=== PATIENT | female | born 1950 | race Caucasian/White ===

== ENCOUNTER 2018-07-04 09:34 | Outpatient (REF) | payer MEDICARE, BC, SELFPAY ==
[2018-07-04 13:07] LABS: Anion Gap 6.9 mmol/L (3-11); BUN 16 mg/dL (7-18); CO2 30.1 mmol/L (21.0-32.0); CREATININE 0.84 mg/dL (0.55-1.02); Calcium 9.3 mg/dL (8.5-10.1); Chloride 105 mmol/L (98-107); Glucose 89 mg/dL (70-100); Potassium 4.5 mmol/L (3.5-5.1); Sodium 142 mmol/L (136-145)
== END 2018-07-04 09:54 ==
LOC: NCHCN 09:34
PROVIDERS: PCP Family Medicine; Visit Provider Family Medicine
DX: I10 Essential (primary) hypertension (principal)
CPT/HCPCS: 80048

== ENCOUNTER 2019-07-16 01:32 | Outpatient (CLI) | payer MEDICARE, BC, SELFPAY ==
--- NOTE | 2019-07-16 | DI.MAMMO_ITS ---
EXAM: MAMMO SCREENING CLINICAL HISTORY: SCREENING Z12.31 TECHNIQUE: Mammograms were interpreted according to the usual protocol including computer analysis w [employer] CAD system, tomosynthesis and C-view imaging. COMPARISON: 2009 to 2017 FINDINGS: The breasts are composed of scattered fibroglandular densities, Breast Density category B. No suspicious masses or suspicious microcalcifications are seen. No skin thickening or abnormal axillary lymph nodes are seen. There has been no significant change from prior exams. IMPRESSION: BIRADS Category 1, negative mammogram. Yearly screening mammography is recommended.
== END 2019-07-16 01:52 ==
PROVIDERS: PCP Family Medicine; Visit Provider Family Medicine
DX: Z12.31 Encounter for screening mammogram for malignant neoplasm of breast (principal)
CPT/HCPCS: 77063; 77067

== ENCOUNTER 2019-08-06 18:39 | Outpatient (REF) | payer MEDICARE, BC, SELFPAY ==
[2019-08-06 19:45] LABS: Anion Gap 6.3 mmol/L (3-11); BUN 10 mg/dL (7-18); CO2 30.7 mmol/L (21.0-32.0); CREATININE 0.82 mg/dL (0.55-1.02); Calcium 8.7 mg/dL (8.5-10.1); Chloride 99 mmol/L (98-107); Glucose 48 mg/dL (74-106); Magnesium 1.8 mg/dL (1.8-2.4); Sodium 136 mmol/L (136-145)
== END 2019-08-06 18:59 ==
LOC: NCHCN 18:39
PROVIDERS: PCP Family Medicine; Visit Provider Family Medicine
DX: I10 Essential (primary) hypertension (principal); K29.50 Unspecified chronic gastritis without bleeding
CPT/HCPCS: 80048; 83735

== ENCOUNTER 2020-04-26 11:35 | Outpatient (CLI) | payer MEDICARE, BC, SELFPAY ==
--- NOTE | 2020-04-26 | DI.RAD_ITS ---
EXAM: XR THORACIC SPINE COMPLETE CLINICAL HISTORY: ACUTE BACK PAIN, H/O FALL, M54.89 TECHNIQUE: COMPARISON: CR XR LUMBAR SPINE COMPLETE from 04/26/2020 FINDINGS: Four views of the thoracic spine were obtained. Six views of the lumbar spine were obtained. There is a mild biconvex thoracolumbar scoliosis. There is multilevel disc space narrowing which is mild throughout the thoracic region. There is disc space narrowing at L4-5 and L5-S1 lumbar region. There is mild loss of height anteriorly of the T12 vertebral body, this appears represent a minimal a nterior compression fracture of uncertain age, it is likely to be old. No additional fracture seen. There are very prominent bridging osteophytes in the thoracolumbar junction region. IMPRESSION: Severe DJD, mild T12 anterior compression fracture of uncertain age. RADIATION DOSE DELIVERED: Total DLP Total DLP
== END 2020-04-26 11:55 ==
PROVIDERS: PCP Family Medicine; Visit Provider Family Medicine
DX: M47.814 Spondylosis without myelopathy or radiculopathy, thoracic region (principal); S22.088A Other fracture of T11-T12 vertebra, initial encounter for closed fracture; M41.85 Other forms of scoliosis, thoracolumbar region
CPT/HCPCS: 72072; 72110

== ENCOUNTER 2020-07-18 15:28 | Outpatient (REF) | payer MEDICARE, BC, SELFPAY ==
[2020-07-18 16:27] LABS: ALT 25 U/L (14-59); AST 19 U/L (15-37); Albumin 3.8 g/dL (3.4-5.0); Alkaline Phosphatase 74 U/L (46-116); Anion Gap 7.3 mmol/L (3-11); BUN 8 mg/dL (7-18); Bilirubin, Total 0.8 mg/dL (0.2-1.0); CO2 30.7 mmol/L (21.0-32.0); CREATININE 0.8 mg/dL (0.55-1.02); Calcium 9.6 mg/dL (8.5-10.1); Chloride 99 mmol/L (98-107); Glucose 104 mg/dL (74-106); Potassium 4.4 mmol/L (3.5-5.1); Sodium 137 mmol/L (136-145); TSH (W/Ref FT4) 3.06 uIU/mL (0.36-3.74); Total Protein 6.6 g/dL (6.4-8.2)
== END 2020-07-18 15:29 | disposition home or self-care (01) ==
LOC: NCHCN 15:28
PROVIDERS: PCP Family Medicine; Visit Provider Family Medicine
DX: I10 Essential (primary) hypertension (principal); E77.8 Other disorders of glycoprotein metabolism; R25.1 Tremor, unspecified
CPT/HCPCS: 80053; 84443

== ENCOUNTER 2021-06-23 19:39 | Outpatient (REF) | payer MEDICARE, BC, SELFPAY ==
[2021-06-23 19:57] LABS: ALT 26 U/L (14-59); AST 20 U/L (15-37); Albumin 3.8 g/dL (3.4-5.0); Alkaline Phosphatase 74 U/L (46-116); Anion Gap 4.3 mmol/L (3-11); BUN 11 mg/dL (7-18); Bilirubin, Total 0.8 mg/dL (0.2-1.0); CO2 31.7 mmol/L (21.0-32.0); CREATININE 0.8 mg/dL (0.55-1.02); Calcium 9.6 mg/dL (8.5-10.1); Chloride 102 mmol/L (98-107); Glucose 92 mg/dL (74-106); Sodium 138 mmol/L (136-145); Total Protein 6.6 g/dL (6.4-8.2)
[2021-06-23 20:30] LABS: Calculated LDL 166 mg/dL (<100); Cholesterol 251 mg/dL (<200); HDL Cholesterol 76 mg/dL (40-60); Triglyceride 47 mg/dL (<150)
[2021-06-26 10:35] LABS: Hepatitis C Ab w Rflx HCV PCR Negative (Negative)
== END 2021-06-23 19:40 | disposition home or self-care (01) ==
LOC: LBN 19:39
PROVIDERS: PCP Family Medicine; Visit Provider Family Medicine
DX: E77.8 Other disorders of glycoprotein metabolism (principal); Z11.59 Encounter for screening for other viral diseases
CPT/HCPCS: 80053; 80061; 86803

== ENCOUNTER 2021-07-26 01:01 | Outpatient (CLI) | payer MEDICARE, BC, SELFPAY ==
--- NOTE | 2021-07-26 09:30 | DI.MAMMO_ITS ---
Exam(s) MAMMO SCREENING EXAM: MAMMO SCREENING CLINICAL HISTORY: SCREENING, Z12.39 TECHNIQUE: Mammograms were interpreted according to the usual protocol including computer analysis w [employer] CAD system, tomosynthesis and C-view imaging. COMPARISON: FINDINGS: The breasts are of moderate density with fairly symmetrical distribution of fibroglandular tissue. N o dominant mass or clumped microcalcification is identified in either breast. The current examinatio n is compared with previous examinations including June 2019 and there has been no gross interval change in appearance in comparison with the prior studies. IMPRESSION: No specific evidence of malignancy at this time. Routine screening examinations are suggested at yea rly intervals due to the family history of breast carcinoma. BI-RADS Category 1 - Negative Breast Density - Category B - Scattered areas of fibroglandular density
== END 2021-07-26 01:21 ==
PROVIDERS: PCP Family Medicine; Visit Provider Family Medicine
DX: Z12.31 Encounter for screening mammogram for malignant neoplasm of breast (principal)
CPT/HCPCS: 77063; 77067

== ENCOUNTER → 2022-03-28 11:15 | Outpatient (CLI) | payer MEDICARE, BC, SELFPAY ==
--- NOTE | 2022-03-28 | DI.US_ITS ---
Exam(s) US LOWER EXTREMITY VENOUS LT EXAM: US LOWER EXTREMITY VENOUS LT CLINICAL HISTORY: LOCALIZED SWELLING OF LT LOWER LEG, R22.42; TENDER CORD LT CALF. TECHNIQUE: Lower extremity venous ultrasound performed using grayscale, color-flow, and spectral Do ppler analysis. COMPARISON: No exams were available for comparison FINDINGS: The common femoral, femoral and popliteal veins demonstrate normal compressibility, augmentation, and color Doppler. The posterior tibial veins are patent. No saphenous vein thrombosis or other superfi cial venous thrombosis is seen. No hematoma or Prado's cyst is seen. IMPRESSION: Negative lower extremity ultrasound. No evidence of DVT. DATA REPOSITORY:
== END ==
PROVIDERS: PCP Family Medicine; Visit Provider Family Medicine
DX: R22.42 Localized swelling, mass and lump, left lower limb (principal)
CPT/HCPCS: 93971

== ENCOUNTER 2022-06-27 15:49 | Outpatient (REF) | payer MEDICARE, BC, SELFPAY ==
[2022-06-27 16:13] LABS: Anion Gap 6.1 mmol/L (3-11); BUN 10 mg/dL (7-18); CO2 30.9 mmol/L (21.0-32.0); CREATININE 0.7 mg/dL (0.55-1.02); Calcium 9.6 mg/dL (8.5-10.1); Calculated LDL 147 mg/dL (<100); Chloride 102 mmol/L (98-107); Cholesterol 237 mg/dL (<200); Estimated GFR 91.26 (mL/min/1.73m2); Glucose 97 mg/dL (74-106); HDL Cholesterol 81 mg/dL (40-60); Potassium 4.3 mmol/L (3.5-5.1); Sodium 139 mmol/L (136-145); Triglyceride 45 mg/dL (<150)
== END 2022-06-27 15:50 | disposition home or self-care (01) ==
LOC: NCHCN 15:49
PROVIDERS: PCP Family Medicine; Visit Provider Family Medicine
DX: E78.5 Hyperlipidemia, unspecified (principal); I10 Essential (primary) hypertension
CPT/HCPCS: 80048; 80061

== ENCOUNTER 2022-07-27 01:01 | Outpatient (CLI) | payer MEDICARE, BC, SELFPAY ==
--- NOTE | 2022-07-27 11:00 | DI.DEXA_ITS ---
Exam(s) XR DEXA BONE DENSITY W/WO KAILEY EXAM: XR DEXA BONE DENSITY W/WO KAILEY CLINICAL HISTORY: OTHER SPECIFIED DISORDERS OF BONE DENSITY AND STRUCTURE, M85.88 TECHNIQUE: Routine DEXA evaluation of the lumbar spine, hip, or forearm. COMPARISON: Prior DEXA scan of August 2008 FINDINGS: Performed on a [employer] unit. Lateral image: No compression fracture evident. Lumbar Spine total T-score: -1.3. Prior 2008 reading was -1.2. Hip total T-score:-0.8. Prior 2008 reading was 0.3. Independent reading at the level of the femoral neck yields T-score of -1.3 Forearm total T-score: -2.6 IMPRESSION: Bone mineral density measures in the osteopenia range 4 the spine and hip and measures in osteoporosi s range for the forearm.. Fracture risk is moderate-high. Note: Any spine fracture indicates 5x risk for subsequent spine fracture and 2x risk for subsequent h ip fracture. World Health Organization criteria for BMD interpretation classify patients: Normal...... T- Score at or above -1.0 Osteopenic... T- Score between -1.0 and -2.5 Osteoporosis... T-Score at or below -2.5
--- NOTE | 2022-07-27 11:11 | DI.MAMMO_ITS ---
Exam(s) MAMMO SCREENING EXAM: MAMMO SCREENING CLINICAL HISTORY: SCREENING, Z12.39. TECHNIQUE: Bilateral full field digital CC and MLO mammographic images were obtained with 3D tomosyn thesis and utilizing computer aided detection (CAD). COMPARISON: Prior mammograms were reviewed. FINDINGS: There has been no significant change in the appearance and distribution of the fibroglandular tissue. There are no new spiculated masses nor malignant appearing microcalcification groups. Asymmetric density lateral of center in the right breast is unchanged from 2013 and therefore benign. There is no significant architectural distortion nor skin thickening-retraction. IMPRESSION: No radiographic evidence of malignancy. Stable benign findings. BI-RADS Category 2 - Benign Findings Breast Density - Category B - Scattered areas of fibroglandular density Breast density Category C or D implies that the patient has dense breast tissue. Dense breast tissue can make it harder to find cancer on a mammogram. Dense breast tissue is also associated with an incr eased risk of breast cancer. This information about the result of the mammogram report was provided to the patient to raise their awareness. Use this report when you speak with the patient about their risks for breast cancer, which includes their family history. At that time, you may recommend additional screening tests (Ultrasoun d or MRI) as these tests may add significant information. A negative radiographic report should not delay biopsy if a dominant or clinically suspicious mass is present. Up to ten percent of cancers are not identified on mammography. A negative report may reinforce clinical impression. Adenosis and dense breasts may obscure an underlying neoplasm. False positive reports average 6 to 10%. Patient will receive a letter notifying them of these results.
== END 2022-07-27 01:21 ==
PROVIDERS: PCP Family Medicine; Visit Provider Family Medicine
DX: Z12.31 Encounter for screening mammogram for malignant neoplasm of breast (principal); M85.88 Other specified disorders of bone density and structure, other site; M81.0 Age-related osteoporosis without current pathological fracture
CPT/HCPCS: 77063; 77067; 77080

== ENCOUNTER 2023-02-01 09:15 | Outpatient (CLI) | payer MEDICARE, BC, SELFPAY ==
--- NOTE | 2023-02-01 08:00 | DI.RAD_ITS ---
Exam(s) XR KNEE RT 3V AP,LAT,DANIELLA EXAM: XR KNEE RT 3V AP,LAT,DANIELLA CLINICAL HISTORY: right knee pain. TECHNIQUE: 2D digital imaging was performed of the right knee. Three views obtained. AP, lateral an d PA tunnel views were obtained. COMPARISON: No priors for comparison. FINDINGS: BONES: No acute fracture is present. No bony destructive lesion is seen. JOINTS: There is moderate narrowing of the medial femoral tibial joint. Small osteophytes are seen i n all 3 joint compartments. There does appear to be a small joint effusion. SOFT TISSUE: Normal. IMPRESSION: Mild degenerative changes of the right knee. DATA REPOSITORY: RADIATION DOSE DELIVERED:
== END 2023-02-01 09:16 | disposition home or self-care (01) ==
LOC: DIORS 09:16
PROVIDERS: PCP Family Medicine; Referring Provider Family Medicine; Visit Provider Physician Assistant
DX: M17.11 Unilateral primary osteoarthritis, right knee; M23.91 Unspecified internal derangement of right knee; Z98.890 Other specified postprocedural states
CPT/HCPCS: 73562; 99203

== ENCOUNTER 2023-03-08 14:44 | Emergency (ER) | payer MEDICARE, BC, SELFPAY ==
[2023-03-08] VITALS (13 sets, daily range): BP systolic 81–201; BP diastolic 42–89; PULSE 50–54; RESP 16–18; TEMP 36.7; O2SAT 96–100
--- NOTE | 2023-03-08 16:08 | W.ED.GENAD ---
Discharge Plan Disposition Patient Disposition: Home Condition: Improving Discharge Details Clinical Impression: Fracture, humerus closed Primary Care Provider: Alfredo Bardales ED Provider: Peter Frias Meds and New Rx's Prescriptions: New naproxen [Naprosyn] 500 mg tablet 500 mg PO BID Qty: 30 0RF tramadol 50 mg tablet 50 mg PO BID PRN (Reason: pain) Qty: 14 0RF Continued atorvastatin 20 mg tablet 20 mg PO DAILY losartan-hydrochlorothiazide 50-12.5 mg tablet 1 tab PO DAILY cyclosporine [Restasis] 0.05 % dropperette 1 drp ophthalmic (eye) Q12H Fish Oil 1 EACH capsule 2 ea PO DAILY multivitamin 1 EACH tablet 1 tab PO DAILY sumatriptan succinate 100 MG tablet 100 mg PO DAILY PRN calcium carbonate [Calcium 600] 600 MG tablet 600 mg PO TID colestipol [Colestid] 1 GM tablet 1 g PO QID PRN Psyllium [Metamucil] 1 EACH Pkt 1 pkt PO DAILY PRN fluocinolone 0.01 % solution TOPICAL Patient Comments: APPLY A SMALL AMOUNT TO THE SKIN TWO TIMES A DAY TO SCALP RASH acetaminophen [Tylenol] 325 MG tablet 650 mg PO Q6H PRN PRNQty: 0 0RF Discharge Instructions Instructions: Arm Fracture in Adults (ED) Discharge Data Discharge Physician: Peter Frias Medical Decision Making MDM: Summary: Patient presents to the emergency department after she fell sitting trauma to her right shoulder and right knee. She had labs done and imaging. CT of the head C-spine chest abdomen pelvis is all negative. X-ray of the right shoulder which she sustained trauma shows a fracture of the humeral head. X-ray of the knee which she also seen trauma shows no fracture. Data Review Analysis All the data on this patient was reviewed by me including laboratory and imaging studies as well as bedside studies performed by me Independent review of Studies Imaging Images was reviewed by me as read by me the only finding was the description above Lab: Labs unremarkable Risk Stratification: Patient who sustained trauma and fell send trauma to right shoulder who only has a fracture of the humeral head and was be placed on a sling and shoulder immobilizer and will be discharged home with analgesics with follow-up with orthopedic surgery Differential Diagnosis: 1. Shoulder fracture 2. Shoulder dislocation 3. Blunt abdominal trauma 4. Head injury with intracranial bleed 5. Consultants: Shared disposition: Patient feels much improved after analgesics in the emergency department will be go home on the immobilizer and follow with Ortho surgery Impression: Medical Records Medical records reviewed: Yes I reviewed the patient's medical records. Imaging Data Radiologic Study: Attestation: I personally reviewed and interpreted this imaging study as follows: Imaging: CT Scan Radiologist's impression: Launch?Image Patient Name: Kavitha Batista Unit #: [id number] Loc: ER Ordering Provider: Peter Frias M.D. Status: REG ER Primary Care Provider: Alfredo Bardales Date of Exam: 03/08/23 Sex: F : 1950 Age: 72 Exam(s) a CT:CT head & cervical spine wo Exam(s) CT HEAD CERVICAL SPINE WO EXAM: CT HEAD CERVICAL SPINE WO CLINICAL HISTORY: trauma. TECHNIQUE: Imaging Protocol: Axial computed tomography images with coronal and sagittal reformatted images were created and reviewed COMPARISON: No exams were available for comparison FINDINGS: CT Head: Ventricles and Extra axial spaces: Normal in size and morphology for the patient's age. Hemorrhage: None. Cerebral parenchyma: Normal. Midline shift: None. Brainstem/Cerebellum: Normal. Calvarium: Normal. Visualized Paranasal sinuses/Mastoids: Clear. Soft Tissues: Unremarkable. CT Cervical Spine: Bones: No acute fracture or subluxation. Degenerative changes are seen throughout the cervical spine. Soft Tissues: Unremarkable. Lung Apices: Clear. IMPRESSION: 1. No acute intracranial process. 2. No acute fracture or subluxation in the cervical spine. RADIATION DOSE DELIVERED: Total DLP DATA REPOSITORY: All CT scans at this facility are submitted to the National Radiology Data Registry (NRDR) Dose Index Registry (DIR) with the [employer] (ACR). RADIATION OPTIMIZATION: All CT scans at this facility use at least one of these dose optimization techniques: automated exposure control; mA and/or kV adjustment per patient size (includes targeted exams where dose is matched to clinical indication); or iterative reconstruction. [id number]: Total DLP = 0.00 mGy-cm Ordered By: Peter Frias M.D. CC: Radiologic Study #2: Imaging: X-Ray Radiologist's impression: dmission Date: 03/08/23 : 1950 Age: 72 Exam(s) XR SHOULDER RT COMPLETE 2+V EXAM: XR SHOULDER RT COMPLETE 2+V CLINICAL HISTORY: trauma. TECHNIQUE: 2D digital imaging was performed of the right shoulder. Four images were obtained. AP, Grashey, and Y views were obtained. COMPARISON: No exams were available for comparison FINDINGS: BONES: There is an acute comminuted fracture seen at the proximal humerus. The fracture involves the surgical neck and the greater tuberosity. The fracture is mildly impacted. The tuberosity fracture is displaced. JOINTS: No dislocation present. The acromioclavicular joint is unremarkable. SOFT TISSUE: Normal. IMPRESSION: Comminuted impacted and displaced fracture of the proximal right humerus. DATA REPOSITORY: RADIATION DOSE DELIVERED: Radiologic Study #3: Attestation: I personally reviewed and interpreted this imaging study as follows: Imaging: X-Ray Radiologist's impression: Kavitha Batista??72??F??1950 ? Allergy/Adv: latex, isosorbide Close Shoulder X-Ray (Signed) Micheal Reynoso - 03/08/23 Knee X-Ray (Signed) Micheal Reynoso - 03/08/23 Thoracic/Lumbar Spine CT 03/08/23 Head/Cervical Spine CT (Signed) Micheal Reynoso - 03/08/23 Chest/Abdomen/Pelvis CT 03/08/23 Launch?Image Patient Name: Kavitha Batista Unit #: [id number] Loc: ER Ordering Provider: Peter Frias M.D. Status: REG ER Primary Care Provider: Alfredo Bardales Date of Exam: 03/08/23 Sex: F : 1950 Age: 72 Exam(s) a CT:CT head & cervical spine wo Exam(s) CT HEAD CERVICAL SPINE WO EXAM: CT HEAD CERVICAL SPINE WO CLINICAL HISTORY: trauma. TECHNIQUE: Imaging Protocol: Axial computed tomography images with coronal and sagittal reformatted images were created and reviewed COMPARISON: No exams were available for comparison FINDINGS: CT Head: Ventricles and Extra axial spaces: Normal in size and morphology for the patient's age. Hemorrhage: None. Cerebral parenchyma: Normal. Midline shift: None. Brainstem/Cerebellum: Normal. Calvarium: Normal. Visualized Paranasal sinuses/Mastoids: Clear. Soft Tissues: Unremarkable. CT Cervical Spine: Bones: No acute fracture or subluxation. Degenerative changes are seen throughout the cervical spine. Soft Tissues: Unremarkable. Lung Apices: Clear. IMPRESSION: 1. No acute intracranial process. 2. No acute fracture or subluxation in the cervical spine. RADIATION DOSE DELIVERED: Total DLP DATA REPOSITORY: All CT scans at this facility are submitted to the National Radiology Data Registry (NRDR) Dose Index Registry (DIR) with the [employer] (ACR). RADIATION OPTIMIZATION: All CT scans at this facility use at least one of these dose optimization techniques: automated exposure control; mA and/or kV adjustment per patient size (includes targeted exams where dose is matched to clinical indication); or iterative reconstruction. [id number]: Total DLP = 0.00 mGy-cm Ordered By: Rafal Frias General Date/Time Provider Initiated Documentation: 03/08/23 15:14. HPI Narrative: Patient presents emergency department complaining of right shoulder pain and right knee pain after she sustained a fall while going down her basement. States that she landed her right shoulder right knee. Also complaining of neck pain. She was by an ambulance on neck immobilizer. Denies any head injury denies any loss of consciousness denies any chest or abdominal pain denies any shortness of breath. Related Data Home Medications Medication Instructions Recorded Confirmed Psyllium [Metamucil] 1 pkt PO DAILY PRN 12/03/13 03/08/23 calcium carbonate 600 mg calcium 600 mg PO TID 12/03/13 03/08/23 (1,500 mg) tablet (Calcium) colestipol 1 gram tablet (Colestid) 1 g PO QID PRN 12/03/13 03/08/23 multivitamin 1 tab PO DAILY 12/03/13 03/08/23 sumatriptan succinate 100 mg tablet 100 mg PO DAILY PRN 12/03/13 03/08/23 omega-3 fatty acids-fish oil 340 2 ea PO DAILY 12/31/16 03/08/23 mg-1,000 mg capsule (Fish Oil) acetaminophen 325 mg tablet 650 mg (2 x 325 mg) PO Q6H PRN PRN 02/14/17 03/08/23 (Tylenol) #0 tabs atorvastatin 20 mg tablet 20 mg PO DAILY 02/01/23 03/08/23 cyclosporine 0.05 % eye drops in a 1 drp ophthalmic (eye) Q12H 02/01/23 03/08/23 dropperette (Restasis) losartan 50 mg-hydrochlorothiazide 1 tab PO DAILY 02/01/23 03/08/23 12.5 mg tablet fluocinolone 0.01 % topical topical 03/08/23 solution naproxen 500 mg tablet (Naprosyn) 500 mg PO BID #30 tabs 03/08/23 tramadol 50 mg tablet 50 mg PO BID PRN pain #14 tabs 03/08/23 Previous Rx's Medication Instructions Recorded acetaminophen 325 mg tablet 650 mg (2 x 325 mg) PO Q6H PRN PRN 02/14/17 (Tylenol) #0 tabs naproxen 500 mg tablet (Naprosyn) 500 mg PO BID #30 tabs 03/08/23 tramadol 50 mg tablet 50 mg PO BID PRN pain #14 tabs 03/08/23 Allergies Allergy/AdvReac Type Severity Reaction Status Date / Time latex Allergy Intermediate Skin Rash Unverified 03/08/23 14:48 isosorbide [Isosorbide] AdvReac Intermediate Headache Unverified 03/08/23 14:48 General Stated Complaint: Fall/Non TraumaCriteria JESSICA: 3 Review of Systems Narrative: Review of Systems: Constitutional: No fevers, chills, sweats Eye: No recent visual problems ENT: No ear pain, nasal congestion, sore throat Respiratory: No shortness of breath, cough Cardiovascular: No Chest pain, palpitations, syncope Gastrointestinal: No nausea, vomiting, diarrhea Genitourinary: No hematuria Von/Lymph: Negative for bruising tendency, swollen lymph glands Endocrine: Negative for excessive thirst, excessive hunger Musculoskeletal: No back pain, Integumentary: No rash, pruritus, abrasions Neurologic: Alert & oriented X 4 Psychiatric: No anxiety, depression PFSH All Active Problems (Updated 03/08/23 @ 19:31 by Peter Frias MD) Fracture, humerus closed (Acute) Degenerative joint disease of right knee (Acute) Internal derangement of right knee (Acute) Surgical History Status post arthroscopy of right knee (02/14/17) Partial medial meniscectomy Social History Smoking/Tobacco Use Status: Never Smoking risk assessment performed?: Yes Alcohol Intake: never Drug use: Never Substance use type: does not use Housing: house Do you feel safe at home: Yes Do you feel safe in your relationship?: Yes Exam Narrative Exam Narrative: Exam; vitals signs as reported above normal Constitutional; In no acute distress, afebrile General: cooperative, healthy appearing, comfortable and no acute distress HEENT: Head: normal to inspection, no palpable skull fracture and normocephalic atraumatic Eyes: : appearance normal, both eyes and all related structures EOM intact bilaterally Pupils: PERRL : conjunctiva normal Direct ophthalmoscopy: normal light reflex, normal conjunctiva, normal visual acuity Ears: Normal TM, normal external canal Nose: normal no rhinorrhea Neck no JVD, on neck immobilizer Neck: normal visual inspection, full ROM and no lymphadenopathy Chest: normal inspection of the chest Respiratory : normal respiratory effort and able to speak in complete sentences no wheezing no rales Cardio Rate: regular rate, rhythm: regular rhythm normal heart sounds S1 and S2 no murmurs, gallops, or rubs GI : normal to inspection, normal bowel sounds, soft, non tender, non distended, no organomegaly Back/Spine/ no CVA tenderness Thoracic/Lumbar Spine: no tenderness or deformities Skin no rashes or lesions Neuro: patient alert oriented x 4 and no meningeal signs, Cranial Nerves: CN's II-XI intact bilaterally, Cognition: normal cognition, Speech: speech normal, Gait: normal gait, Depp tendon reflexes normal 2+ muscle strength 5/5 bilaterally Extremities, tenderness to palpation and swelling over the right shoulder at the level of the humeral head. Mild tenderness to palpation of the right knee but full range of motion : normal Rectal: Course Vital Signs Vital signs: Vital Signs Temperature 36.7 C 03/08/23 14:43 Pulse 54 L 03/08/23 14:43 Respiratory Rate 16 03/08/23 14:43 Blood Pressure 201/89 H 03/08/23 14:43 Pulse Oximetry 100 03/08/23 14:43 Temperature 36.7 C 03/08/23 14:43 Temperature Source Temporal Artery Scan 03/08/23 14:43 Pulse 50 L 03/08/23 16:03 Respiratory Rate 18 03/08/23 16:03 Respiratory Effort Normal 03/08/23 14:48 Blood Pressure 183/87 H 03/08/23 16:03 Blood Pressure Position Sitting 03/08/23 14:43 Pulse Oximetry 100 03/08/23 16:03 Oxygen Delivery Method Room Air 03/08/23 16:03 Oxygen Flow Rate 0 03/08/23 16:03 Pain Level 9 03/08/23 16:03
--- NOTE | 2023-03-08 16:15 | DI.CT_ITS ---
Exam(s) CT HEAD CERVICAL SPINE WO EXAM: CT HEAD CERVICAL SPINE WO CLINICAL HISTORY: trauma. TECHNIQUE: Imaging Protocol: Axial computed tomography images with coronal and sagittal reformatted images were created and reviewed COMPARISON: No exams were available for comparison FINDINGS: CT Head: Ventricles and Extra axial spaces: Normal in size and morphology for the patient's age. Hemorrhage: None. Cerebral parenchyma: Normal. Midline shift: None. Brainstem/Cerebellum: Normal. Calvarium: Normal. Visualized Paranasal sinuses/Mastoids: Clear. Soft Tissues: Unremarkable. CT Cervical Spine: Bones: No acute fracture or subluxation. Degenerative changes are seen throughout the cervical spine. Soft Tissues: Unremarkable. Lung Apices: Clear. IMPRESSION: 1. No acute intracranial process. 2. No acute fracture or subluxation in the cervical spine. RADIATION DOSE DELIVERED: Total DLP DATA REPOSITORY: All CT scans at this facility are submitted to the National Radiology Data Registry (NRDR) Dose Index Registry (DIR) with the [employer] (ACR). RADIATION OPTIMIZATION: All CT scans at this facility use at least one of these dose optimization te chniques: automated exposure control; mA and/or kV adjustment per patient size (includes targeted exa ms where dose is matched to clinical indication); or iterative reconstruction.
--- NOTE | 2023-03-08 16:15 | DI.CT_ITS ---
Exam(s) CT CHEST/ABD/PEL W CT THORACIC LUMBAR SPINE REC EXAM: CT CHEST/ABD/PEL W CLINICAL HISTORY: trauma. TECHNIQUE: Imaging Protocol: Axial computed tomography images with coronal and sagittal reformatted images were created and reviewed CONTRAST MATERIAL: Intravenous: Omnipaque 350 Contrast volume:100 ml Oral: no COMPARISON: CR XR LUMBAR SPINE COMPLETE from 04/26/[address] THORACIC LUMBAR SPINE REC from 03/08/2023 FINDINGS: CHEST: Tracheobronchial tree: Patent where visualized. Pulmonary parenchyma: No consolidation or dominant measurable mass. Pleura: No effusion or pneumothorax. Lymph nodes: Within normal limits. Aorta: Thoracic portion non-dilated. Heart: Mildly enlarged. No pericardial effusion. Bones: Comminuted humeral head fracture. No lytic or blastic lesions. Moderate T12 compression frac ture appears old. No acute fracture lines are seen. There is mild retropulsion of the superior endp late. No surrounding hematoma. The T12 vertebral body showed mild loss of height on the 2019 lumbar spine films. Mild scoliosis. Degenerative changes. ABDOMEN and PELVIS: Liver: Normal density. No measurable mass. Gallbladder and biliary tract: No evidence of stones or wall thickening. No biliary dilatation. Pancreas: Normal density, no abnormal calcifications or inflammatory process. Spleen: Normal. Kidneys: Normal size, contour and axis. No radiodense stones or obstructive uropathy. No suspicious m asses seen. Adrenal glands: No masses seen. Aorta: Abdominal portion non-dilated. Mild atherosclerotic changes. Lymph nodes: Within normal limits. Soft tissues: Unremarkable. Bladder: Unremarkable. Bowel: No obstruction or bowel wall thickening. Diverticulosis. Appendix normal. Peritoneal cavity: No ascites. No focal collection or mesenteric inflammatory response. Bones: Unremarkable for age. Reproductive organs: Within normal limits. IMPRESSION: Comminuted humeral head fracture. Moderate T12 compression fracture appears old. No acute abnormality in the chest abdomen or pelvis. RADIATION DOSE DELIVERED: Total DLP DATA REPOSITORY: All CT scans at this facility are submitted to the National Radiology Data Registry (NRDR) Dose Index Registry (DIR) with the [employer] (ACR). RADIATION OPTIMIZATION: All CT scans at this facility use at least one of these dose optimization te chniques: automated exposure control; mA and/or kV adjustment per patient size (includes targeted exa ms where dose is matched to clinical indication); or iterative reconstruction.
[2023-03-08] MEDS: MORPHine 4 MG/ML SYR IVP (16:29)
[2023-03-08 16:43] LABS: Abs Immature Grans 0.04 10^3/uL (0.0-0.06); Absolute Basophil Count 0.03 10^3/uL (0.0-0.2); Absolute Eosinophil Count 0.04 10^3/uL (0.0-0.7); Absolute Lymphocyte Count 0.67 10^3/uL (1.2-3.4); Absolute Neutrophil Count 8.63 10^3/uL (1.2-6.7); Basophils % 0.3; Eosinophils % 0.4; HCT 41.4 % (36.0-46.0); HGB 13.7 g/dL (11.2-15.7); Immature Grans % 0.4; Lymphocytes % 6.7; MCH 29.3 pg (27.0-33.0); MCHC 33.1 % (32.0-36.0); MCV 89 fL (80-95); MPV 10.8 fL (8.0-11.0); Neutrophils % 86.2; Platelet Count 269 10^3/uL (130-400); RBC 4.68 10^6/uL (3.93-5.22); RDW 13.9 % (11.7-14.6); RDW-SD 44.9 fL; WBC 10.01 10^3/uL (4.4-10.8)
[2023-03-08 16:57] LABS: ALT 29 U/L (14-59); AST 25 U/L (15-37); Albumin 3.7 g/dL (3.4-5.0); Alkaline Phosphatase 78 U/L (46-116); BUN 11 mg/dL (7-18); Bilirubin, Total 1.3 mg/dL (0.2-1.0); CREATININE 0.8 mg/dL (0.55-1.02); Calcium 9.2 mg/dL (8.5-10.1); Chloride 98 mmol/L (98-107); Estimated GFR 77.27 (mL/min/1.73m2); Glucose 116 mg/dL (74-106); Potassium 3.6 mmol/L (3.5-5.1); Sodium 133 mmol/L (136-145); Total Protein 6.6 g/dL (6.4-8.2)
[2023-03-08] MEDS: Omnipaque 350 MG/ML 100 ML BTL IJ (18:16)
[2023-03-08] MEDS: Normal Saline - Diluent 50 ML VIAL IJ (18:16)
[2023-03-08] MEDS: Normal Saline Flush 10 ML SYR IVP (18:17)
--- NOTE | 2023-03-08 18:38 | DI.RAD_ITS ---
Exam(s) XR SHOULDER RT COMPLETE 2+V EXAM: XR SHOULDER RT COMPLETE 2+V CLINICAL HISTORY: trauma. TECHNIQUE: 2D digital imaging was performed of the right shoulder. Four images were obtained. AP, Grashey, and Y views were obtained. COMPARISON: No exams were available for comparison FINDINGS: BONES: There is an acute comminuted fracture seen at the proximal humerus. The fracture involves the surgical neck and the greater tuberosity. The fracture is mildly impacted. The tuberosity fracture is displaced. JOINTS: No dislocation present. The acromioclavicular joint is unremarkable. SOFT TISSUE: Normal. IMPRESSION: Comminuted impacted and displaced fracture of the proximal right humerus. DATA REPOSITORY: RADIATION DOSE DELIVERED:
--- NOTE | 2023-03-08 18:38 | DI.RAD_ITS ---
Exam(s) XR KNEE RT 3V AP,LAT,DANIELLA EXAM: XR KNEE RT 3V AP,LAT,DANIELLA CLINICAL HISTORY: trauma. TECHNIQUE: 2D digital imaging was performed of the right knee. Three views obtained. AP, lateral an d PA tunnel views were obtained. COMPARISON: CR XR KNEE RT 3V AP,LAT,DANIELLA from 02/01/2023 FINDINGS: BONES: No acute fracture is present. No bony destructive lesion is seen. JOINTS: The knee is normally aligned. No joint effusion is seen. Mild degenerative changes are presen t. SOFT TISSUE: Normal. IMPRESSION: No acute fracture or dislocation. DATA REPOSITORY: RADIATION DOSE DELIVERED:
--- NOTE | 2023-03-08 19:00 | DI.VRAD_ITS ---
PROCEDURE INFORMATION: Exam: CT Thoracic Spine Without Contrast Exam date and time: 03/08/2023 6:05 PM Age: 72 years old Clinical indication: Low back pain; Pain in thoracic spine TECHNIQUE: Imaging protocol: Computed tomography of the thoracic spine without contrast. COMPARISON: CR XR THORACIC SPINE COMPLETE 04/26/2020 2:56 PM FINDINGS: Bones/joints: There is mild dextrocurvature of the thoracic spine and moderate to severe compression fracture deformity with irregular concavity and collapse of the superior endplate of T12 is of indeterminate age with recent fracture not excluded. There are a few mm of retropulsion of the posterior margin of the superior endplate of T12 without severe canal stenosis. There is gross preservation of vertebral body height throughout the remainder of the thoracic spine with no other acute vertebral body fractures detected. Posterior elements appear grossly intact throughout thoracic levels. T1-T2: No significant disc bulge or herniation. No severe spinal canal stenosis. No significant neural foraminal narrowing. T2-T3: No significant disc bulge or herniation. No severe spinal canal stenosis. No significant neural foraminal narrowing. T3-T4: No significant disc bulge or herniation. No severe spinal canal stenosis. No significant neural foraminal narrowing. T4-T5: No significant disc bulge or herniation. No severe spinal canal stenosis. No significant neural foraminal narrowing. T5-T6: No significant disc bulge or herniation. No severe spinal canal stenosis. No significant neural foraminal narrowing. T6-T7: No significant disc bulge or herniation. No severe spinal canal stenosis. No significant neural foraminal narrowing. T7-T8: No significant disc bulge or herniation. No severe spinal canal stenosis. No significant neural foraminal narrowing. T8-T9: No significant disc bulge or herniation. No severe spinal canal stenosis. No significant neural foraminal narrowing. T9-T10: No significant disc bulge or herniation. No severe spinal canal stenosis. No significant neural foraminal narrowing. T10-T11: No significant disc bulge or herniation. No severe spinal canal stenosis. No significant neural foraminal narrowing. T11-T12: No significant disc bulge or herniation. No severe spinal canal stenosis. No significant neural foraminal narrowing. T12-L1: There is a few mm of retropulsion of the posterior margin of the superior endplate of T12 seen indenting the ventral thecal sac without severe canal stenosis or evidence of severe cord compression. IMPRESSION: 1. Moderate to severe compression fracture deformity with irregular concavity and collapse of the superior endplate of T12 is of indeterminate age with recent fracture not excluded; MRI could provide additional diagnostic information. There are a few mm of retropulsion of the posterior margin of the superior endplate of T12 without severe canal stenosis. 2. No other acute fractures are detected involving the vertebral bodies or posterior elements throughout the remainder of the thoracic spine. Of you flexion pieces should PROCEDURE INFORMATION: Exam: CT Lumbar Spine Without Contrast Exam date and time: 03/08/2023 6:05 PM Age: 72 years old Clinical indication: Low back pain; Pain in thoracic spine TECHNIQUE: Imaging protocol: Computed tomography of the lumbar spine without contrast. COMPARISON: CR XR LUMBAR SPINE COMPLETE 04/26/2020 2:58 PM FINDINGS: Bones/joints: There is gross preservation of vertebral body height throughout lumbar levels with no acute fractures or dislocations identified. Changes of facet arthropathy are most advanced at the L4-L5 and L5-S1 levels and no acute fracture seen involving the posterior elements of the lumbar spine. L1-L2: No significant disc bulge or herniation. No severe spinal canal stenosis. No significant neural foraminal narrowing. L2-L3: No significant disc bulge or herniation. No severe spinal canal stenosis. No significant neural foraminal narrowing. L3-L4: No significant disc bulge or herniation. No severe spinal canal stenosis. No significant neural foraminal narrowing. L4-L5: There is mild loss of disc space height and posterior osteocartilaginous ridging produces mild central canal stenosis (AP canal dimension approximately 8 mm) with endplate and facet changes also resulting in right foraminal narrowing. The left neural foramen is adequate at L4-L5. L5-S1: There is loss of disc space height and disc desiccation with vacuum disc phenomenon and broad-based posterior disc bulging combines with advanced facet arthropathy to produce severe suspected central canal stenosis (AP canal dimension 6-7 mm) and probable bilateral effacement of the subarticular recesses. Bilateral foraminal narrowings also suspected at L5-S1. Soft tissues: Unremarkable. IMPRESSION: 1. There is gross preservation of vertebral body height throughout lumbar levels with no acute fractures or dislocations identified. Changes of facet arthropathy are most advanced at the L4-L5 and L5-S1 levels and no acute fracture seen involving the posterior elements of the lumbar spine. 2. Degenerative disc and facet changes produce severe canal stenosis and bilateral effacement of the subarticular recesses with probable bilateral foraminal narrowings at L5-S1 as above. Moderate canal stenosis and right foraminal narrowing also identified at L4-L5. Central canal is adequate at remaining lumbar levels. Dictated and Authenticated by: Curly Powell MD. Ordering:MARCIN Green MD
--- NOTE | 2023-03-08 19:09 | DI.VRAD_ITS ---
PROCEDURE INFORMATION: Exam: CT Chest With Contrast; Diagnostic Exam date and time: 03/08/2023 6:05 PM Age: 72 years old Clinical indication: Injury or trauma; Other: Unknown; Generalized; Blunt trauma (contusions or hematomas) TECHNIQUE: Imaging protocol: Diagnostic computed tomography of the chest with contrast. COMPARISON: CT HEAD CERVICAL SPINE WO 03/08/2023 6:00 PM FINDINGS: Lungs: The lungs are clear throughout with no parenchymal lung contusion, consolidation or collapse detected. Pleural spaces: No pneumothorax or pleural effusion. Heart: Heart size is normal and there is no pericardial effusion detected. Lymph nodes: No lymphadenopathy detected at thoracic levels. Vasculature: Normal thoracic aorta with no evidence of dissection or other traumatic injury. No aortic aneurysm detected. Bones/joints: Moderate to severe compression fracture deformity with irregular concavity and collapse of the superior endplate of T12 is of indeterminate age and recent fracture is not excluded. There are few mm of retropulsion of the posterior margin of the superior endplate of T12 without severe canal stenosis. No other acute fractures are detected at thoracic levels. Soft tissues: Unremarkable. IMPRESSION: 1. Moderate to severe compression fracture deformity with irregular concavity and collapse of the superior endplate of T12 is of indeterminate age and recent fracture is not excluded; MRI could provide additional diagnostic information. No other acute fractures are detected at thoracic levels. 2. No other evidence of an acute cardiopulmonary process is identified. PROCEDURE INFORMATION: Exam: CT Abdomen And Pelvis With Contrast Exam date and time: 03/08/2023 6:05 PM Age: 72 years old Clinical indication: Injury or trauma; Other: Unknown; Generalized; Blunt trauma (contusions or hematomas) TECHNIQUE: Imaging protocol: Computed tomography of the abdomen and pelvis with contrast. COMPARISON: MRI R LOWER JOINT WO CONT 11/16/2016 1:42 PM FINDINGS: Liver: Liver is normal in appearance and there is no hepatic laceration or abnormal perihepatic fluid detected. Gallbladder and bile ducts: Gallbladder is normal and there is no abnormal pericholecystic fluid or dilatation of intrahepatic biliary radicles. Pancreas: Pancreas is normal in appearance with no evidence of pancreatic contusion, transection or abnormal peripancreatic fluid collection. Spleen: Spleen is normal appearance with no splenic laceration or abnormal perisplenic fluid detected. Adrenal glands: Normal. No mass. Kidneys and ureters: No evidence of hydronephrosis, renal laceration or abnormal perinephric fluid. Stomach and bowel: Stomach and segments of large and small bowel are unremarkable. Appendix: Normal appendix is identified without evidence of inflammation. Intraperitoneal space: No pneumoperitoneum or free intraperitoneal air is detected. Vasculature: There is no evidence of aortic aneurysm, dissection or other vascular injury. Lymph nodes: Unremarkable. No enlarged lymph nodes. Urinary bladder: Unremarkable as visualized. Reproductive: Unremarkable as visualized. Bones/joints: Degenerative disc and facet changes are most advanced at lower lumbar levels and no acute fractures are detected. Soft tissues: Unremarkable. IMPRESSION: No acute abdominopelvic visceral injury detected. No acute fractures are seen at abdominopelvic levels. Dictated and Authenticated by: Curly Powell MD. Ordering:MARCIN Green MD
--- NOTE | 2023-03-08 20:12 | NUR.NOTE ---
2013: Pt BP persistently low upon discharge assessment. Pt also c/o feeling 'a little tipsy'. MD Frias updated and aware. Per , pt to remain for further monitoring. Ham sandwich and water provided since pt hasn't anything to eat since earlier in the day.
== END 2023-03-08 19:53 | disposition home or self-care (01) ==
PROVIDERS: Emergency Provider Emergency Medicine Emergency Medical Services; PCP Family Medicine
DX: M54.2 Cervicalgia (principal); S42.221A 2-part displaced fracture of surgical neck of right humerus, initial encounter for closed fracture; W10.9XXA Fall (on) (from) unspecified stairs and steps, initial encounter; Y92.008 Other place in unspecified non-institutional (private) residence as the place of occurrence of the external cause
CPT/HCPCS: 73562; 74177; 80053; 96374; 99285; 70450; 71260; 72125; 73030; 85025; J2270; J3490

== ENCOUNTER → 2023-03-13 02:09 | Outpatient (CLI) | payer MEDICARE, BC, SELFPAY ==
--- NOTE | 2023-03-13 07:45 | DI.CT_ITS ---
Exam(s) CT UPPER EXTREMITY RT WO EXAM: CT UPPER EXTREMITY RT WO CLINICAL HISTORY: HUMERAL HEAD FRACTURE,closed,s42.309a. TECHNIQUE: Imaging Protocol: Axial computed tomography images with coronal and sagittal reformatted images were created and reviewed. COMPARISON: CR XR SHOULDER RT COMPLETE 2+V from 03/08/2023 FINDINGS: Bones: There is a comminuted fracture of the proximal humerus. There is a transverse component of t he fracture through the surgical neck. The fracture then extends proximally to involve both the grea ter and lesser tuberosities. There is mild impaction of the fracture at the surgical neck area. The re are displaced fracture fragments arising from the greater tuberosity. There is mild inferior subl uxation of the humeral head relative to the glenoid. No cellulitic or osteomyelitic changes are iden tified. Degenerative changes are seen at the acromioclavicular joint and the glenohumeral joint. No lytic or sclerotic lesions are identified. Soft Tissues: There is edema seen in the surrounding soft tissues. IMPRESSION: Comminuted fracture of the proximal humerus as described. RADIATION DOSE DELIVERED: Total DLP Total DLP DATA REPOSITORY: All CT scans at this facility are submitted to the National Radiology Data Registry (NRDR) Dose Index Registry (DIR) with the [employer] (A[employer]). RADIATION OPTIMIZATION: All CT scans at this facility use at least one of these dose optimization te chniques: automated exposure control; mA and/or kV adjustment per patient size (includes targeted exa ms where dose is matched to clinical indication); or iterative reconstruction.
== END ==
PROVIDERS: PCP Family Medicine; Visit Provider Student in an Organized Health Care Education/Training Program
DX: S42.351A Displaced comminuted fracture of shaft of humerus, right arm, initial encounter for closed fracture (principal)
CPT/HCPCS: 73200

== ENCOUNTER → 2023-03-14 14:59 | Outpatient (BNVA) | payer MEDICARE, BC, SELFPAY | PROVIDERS: PCP Family Medicine; Referring Provider Family Medicine; Visit Provider Student in an Organized Health Care Education/Training Program | DX: S42.201A Unspecified fracture of upper end of right humerus, initial encounter for closed fracture (principal); W19.XXXA Unspecified fall, initial encounter | CPT/HCPCS: 99215 ==

== ENCOUNTER 2023-03-15 06:02 | Day surgery (SDC) | payer MEDICARE, BC, SELFPAY ==
--- NOTE | 2023-03-14 14:26 | PDOC.ANES ---
Date of service: 03/14/23 Time of Service: 14:26 Anesthesia Note Report Anesthesia Note: Patient with fracture on 03/08, developed respiratory symptoms on 03/11. Discussed with Dr. Ardon, plan is to delay patient unless there is significant risk to limb on assessment, at that point patient would be upgraded to an urgent/emergent case and could proceed. I did discuss our concern with the patient from an anesthetic perspective and she was understanding. Looking forward to hearing from Dr. Ardon this afternoon with final determination.
[2023-03-15] VITALS (13 sets, daily range): BP systolic 91–148; BP diastolic 46–88; PULSE 68–87; RESP 10–17; TEMP 36.1–36.6; O2SAT 93–97; BMI 27.7
--- NOTE | 2023-03-15 06:52 | ANES.PREOP_ITS ---
General Info Date of Service Date Performed: 03/15/23 Height: 5 ft 4.5 in Weight: 74.5 kg Body Mass Index (BMI): 27.7 Surgical Procedure: Operation Date: 03/15/23 07:40 Proposed Procedure Side Surgeon p Shoulder FX Reverse Total Arthroplasty, Biceps Tenodesis, any indicated procedures Right Elie Ardon MD Meds Allergies and Home Medications Allergies Allergy/AdvReac Type Severity Reaction Status Date / Time latex Allergy Intermediate Skin Rash Unverified 03/14/23 15:02 isosorbide [Isosorbide] AdvReac Intermediate Headache Unverified 03/14/23 15:02 Home Medication Medication Instructions Recorded Psyllium [Metamucil] 1 pkt PO DAILY PRN 12/03/13 calcium carbonate 600 mg calcium 600 mg PO TID 12/03/13 (1,500 mg) tablet (Calcium) colestipol 1 gram tablet (Colestid) 1 g PO QID PRN 12/03/13 multivitamin 1 tab PO DAILY 12/03/13 sumatriptan succinate 100 mg tablet 100 mg PO DAILY PRN 12/03/13 omega-3 fatty acids-fish oil 340 2 ea PO DAILY 12/31/16 mg-1,000 mg capsule (Fish Oil) acetaminophen 325 mg tablet 650 mg (2 x 325 mg) PO Q6H PRN PRN 02/14/17 (Tylenol) #0 tabs atorvastatin 20 mg tablet 20 mg PO DAILY 02/01/23 cyclosporine 0.05 % eye drops in a 1 drp ophthalmic (eye) Q12H 02/01/23 dropperette (Restasis) losartan 50 mg-hydrochlorothiazide 1 tab PO DAILY 02/01/23 12.5 mg tablet fluocinolone 0.01 % topical topical 03/08/23 solution naproxen 500 mg tablet (Naprosyn) 500 mg PO BID #30 tabs 03/08/23 tramadol 50 mg tablet 50 mg PO BID PRN pain #14 tabs 03/08/23 aspirin 81 mg tablet,delayed 81 mg PO DAILY prevent blood clot 03/15/23 release 7 days #7 tabs naproxen 250 mg tablet 250 - 500 mg (1 - 2 x 250 mg) PO 03/15/23 BID PRN #40 tabs tramadol 50 mg tablet 50 mg PO Q6H PRN PRN severe pain 03/15/23 #12 tabs Current Visit Medications: Current Medications Generic Name Dose Route Start Last Admin Trade Name Hakan PRN Reason Stop Dose Admin Ringer's Solution 1,000 mls @ 30 mls/hr 03/15/23 06:00 IV 04/13/23 23:59 INFUSION [place] Cefazolin Sodium/Dextrose 2 gm in 50 mls @ 100 mls/hr 03/15/23 06:00 Ancef Duplex IVPB 04/13/23 23:59 PREOP [place] Tranexamic Acid 1,000 mg/ 60 mls @ 360 mls/hr 03/15/23 06:00 Sodium Chloride IVPB 03/15/23 18:00 PREOP [place] IV Miscellaneous Supplies 1 each 03/15/23 06:00 Iv Access IV 04/13/23 23:59 DIRECTED [place] Sodium Chloride 0 ml 03/15/23 06:00 Normal Saline Flush 10 Ml Syr IV 04/13/23 23:59 PRN PRN Sodium Chloride 0 ml 03/15/23 06:00 Normal Saline 10 Ml Vial IJ 04/13/23 23:59 DIRECTED PRN Sterile Water 0 ml 03/15/23 06:00 Water,Injection,Sterile 10 Ml Vial IJ 04/13/23 23:59 DIRECTED PRN PFSH Active Problems Active Problems: Problem Status Onset Code HTN (hypertension) I10 Closed fracture of right proximal humerus 03/08/23 S42.201A Degenerative joint disease of right knee M17.11 Internal derangement of right knee M23.91 Surgical History Surgical History (Updated 03/15/23 @ 06:31 by Alem Sandoval) Status post left foot surgery Hammer toe, per pt Previous back surgery Status post arthroscopy of right knee (02/14/17) Partial medial meniscectomy Tobacco Smoking/Tobacco Use Status: Never Alcohol Alcohol Intake: never Substance Use Substance use: Never Substance use type: does not use Vital Signs and Lab Results Vital Signs Most Recent Vital Signs in EMR: Most Recent Vital Signs Temp Pulse Resp BP Pulse Ox 36.1 C L 68 16 148/88 H 97 03/15/23 06:33 03/15/23 06:33 03/15/23 06:33 03/15/23 06:33 03/15/23 06:33 Lab Results Blood Type / Crossmatch: No Data to Display Complete Blood Count: White Blood Count 10.01 10^3/uL (4.4-10.8) 03/08/23 16:38 Red Blood Count 4.68 10^6/uL (3.93-5.22) 03/08/23 16:38 Hemoglobin 13.7 g/dL (11.2-15.7) 03/08/23 16:38 Hematocrit 41.4 % (36.0-46.0) 03/08/23 16:38 Platelet Count 269 10^3/uL (130-400) 03/08/23 16:38 Complete Metabolic Panel: Sodium 133 mmol/L (136-145) L 03/08/23 16:38 Potassium 3.6 mmol/L (3.5-5.1) 03/08/23 16:38 Chloride 98 mmol/L (98-107) 03/08/23 16:38 Carbon Dioxide 29.0 mmol/L (21.0-32.0) 03/08/23 16:38 BUN 11 mg/dL (7-18) 03/08/23 16:38 Creatinine 0.8 mg/dL (0.55-1.02) 03/08/23 16:38 Est GFR (CKD-EPI 2020) 77.27 (mL/min/1.73m2) 03/08/23 16:38 Calcium 9.2 mg/dL (8.5-10.1) 03/08/23 16:38 Albumin 3.7 g/dL (3.4-5.0) 03/08/23 16:38 Glucose 116 mg/dL (74-106) H 03/08/23 16:38 Liver Function Panel: Alanine Aminotransferase (ALT/SGPT) 29 U/L (14-59) 03/08/23 16: 38 Aspartate Amino Transf (AST/SGOT) 25 U/L (15-37) 03/08/23 16:38 Coagulation Panel: No Data to Display Cardiac Panel: No Data to Display Arterial Blood Gas: No Data to Display Venous Blood Gas: No Data to Display Pancreas Panel: No Data to Display Thyroid Panel: No Data to Display Infectious Disease: Coronavirus (COVID-19)(PCR) Pending 03/15/23 07:26 Coronavirus 2019 Source Nasal/Nares 03/15/23 07:26 Blood Cultures: No Data to Display Toxicology Panel: No Data to Display Anesthesia Assessment and Plan Anesthesia History Personal History: Other Family History: No Family History of Anesthesia Complications Exercise Tolerance Exercise Tolerance: Metabolic Equivalents>4 Pertinent Negatives Pertinent Negatives: No Major Cardiovascular Symptoms or Complaints and No History of CVA/TIA Cardiac & Pulmonary Exam Cardiac Exam: Heart Murmur Present (Slight systolic murmur) Pulmonary Exam: Clear Bilateral Breath Sounds Implantable Cardiac Device Does patient have a Pacemaker or an ICD?: No Airway Exam Known Difficult Airway: No Mallampati Class: 2 Mouth Opening: Normal (> 3cm) Thyromental Distance: Greater than 3 cm Neck Range of Motion: Full ROM Neck Circumference: Normal Teeth Condition: Removable Dentures/Plates Upper and Removable Dentures/Plates Lower ASA Classification ASA Score: ASA 2 Emergency Case?: No NPO Status NPO Status: NPO Clears >2 hours, Solids >8 hours Anesthesia Plan Resuscitation Status: Full Code Anesthesia Technique: General Anesthesia Airway Planned: Endotracheal Tube Monitors Used: Standard Monitors Preoperative Comments:: Lung garrison clear, slight systolic murmur noted. Case still being described as not quite elective, decision to obtain a PCR but not hold the case. Duoneb to be given preoperatively.
[2023-03-15] MEDS: Lactated Ringers 1,000 ML 30 ML IV ×2 (07:01→12:51)
--- NOTE | 2023-03-15 07:19 | PDOC.DSDIS_ITS ---
Date of service: 03/15/23 Time of Service: 14:00 Discharge Plan Disposition Patient Disposition: Home Condition: Stable Discharge Details Attending Provider: Elie Ardon Primary Care Provider: Alfredo Bardales Home Meds and New Rx's Prescriptions: New naproxen 250 mg tablet 250 - 500 mg PO BID PRNQty: 40 0RF Rx Instructions: take with a meal aspirin 81 mg tablet,delayed release (DR/EC) 81 mg PO DAILY 7 Days Qty: 7 0RF tramadol 50 mg tablet 50 mg PO Q6H PRN PRN (Reason: severe pain) Qty: 12 0RF Continued atorvastatin 20 mg tablet 20 mg PO DAILY losartan-hydrochlorothiazide 50-12.5 mg tablet 1 tab PO DAILY cyclosporine [Restasis] 0.05 % dropperette 1 drp ophthalmic (eye) Q12H Fish Oil 1 EACH capsule 2 ea PO DAILY multivitamin 1 EACH tablet 1 tab PO DAILY sumatriptan succinate 100 MG tablet 100 mg PO DAILY PRN calcium carbonate [Calcium 600] 600 MG tablet 600 mg PO TID colestipol [Colestid] 1 GM tablet 1 g PO QID PRN Psyllium [Metamucil] 1 EACH Pkt 1 pkt PO DAILY PRN fluocinolone 0.01 % solution TOPICAL Patient Comments: APPLY A SMALL AMOUNT TO THE SKIN TWO TIMES A DAY TO SCALP RASH naproxen [Naprosyn] 500 mg tablet 500 mg PO BID Qty: 30 0RF tramadol 50 mg tablet 50 mg PO BID PRN (Reason: pain) Qty: 14 0RF acetaminophen [Tylenol] 325 MG tablet 650 mg PO Q6H PRN PRNQty: 0 0RF Discharge Instructions Additional Instructions: Surgery: Right fracture reverse total shoulder arthroplasty (tuberosity repair) with biceps tenodesis Activity: Do not lift anything heavier than a coffee. You should keep your arm at your side in a neutral position at all times except for gentle range of motion exercises, physical therapy, and essential activities. You should use the sling whenever you are out of the house. You may have to adjust the abduction pillow or remove it for comfort. At home it is best to remove the sling and rest the arm on a pillow at your side or support the operative side with your other hand. A physical therapy prescription will be sent electronically to start in about 3 weeks. CONSERVATIVE Reverse TSA protocol. Resume home medications: Do not take blood pressure medicine if blood pressure is less than 130/80. Prescriptions: Aspirin 81 mg take 1 daily to prevent a blood clot for 7 days Naproxen 250 mg take 1-2 every 12 hours with a meal as needed for moderate pain Tramadol 50 mg take 1 every 6-8 hours as needed for severe pain You may use [id number] Tylenol (acetaminophen) as needed for mild pain. These pain medications may be taken all at once or in different combinations as needed. Also, recommend Colace (docusate) as a stool softener as surgery and pain medic ine cause constipation. You may try [id number] diphenhydramine (Benadryl) 25-50 mg nightly as a sleep aid Dressings: Leave dressing in place until follow-up. Keep clean and dry at all times. No showers please. Follow-up: 10-[address] Ardon You may take off the leg compression stockings this evening at home. You may also leave them on a few days longer if you have a history of leg swelling or edema. Please call the office during business hours with any questions or concerns. Let us know right away if you develop any redness, drainage, fevers, chest pain, or trouble breathing. Do not drink alcohol or drive for at least 24 hours after anesthesia. Discharge Orders Discharge Orders: Discharge Order (Routine); Ordered 03/15/23 Ordered By: Elie Ardon DS: Diagnosis Discharge Diagnosis (1) Closed fracture of right proximal humerus: Status: Acute
--- NOTE | 2023-03-15 07:24 | ROE_ITS ---
Date of service: 03/15/23 Time of Service: 07:30 Operative Note Operative Note DATE OF PROCEDURE: 03/15/23 PRE-OP DIAGNOSIS: Right: 1. Proximal humerus fracture 2. Glenohumeral arthrosis POST-OP DIAGNOSIS: same PROCEDURE: Right: 1. Reverse total shoulder arthroplasty, CPT # 69909 2. Open biceps tenodesis, CPT # 46419 The special event assistant was medically required as this procedure involves retraction, protection of neurovascular structures, and manipulation of multiple instruments and implants at the same time, which cannot be done without a skilled special event assistant. SURGEON: Elie Ardon TANK CAR RECONDITIONER: Alessia Jovel ANESTHESIA TYPE: Local By Surgeon and General LMA/ETT Refer to Anesthesia Record ESTIMATED BLOOD LOSS: 150 COMPLICATIONS: None Patient was transported to: PACU Patient's condition: stable Implants: [employer] modular glenoid system baseplate 24 mm, 10 degree full wedge augment [employer] modular glenoid system central post 20 mm [employer] modular glenoid system peripheral locking screws 20 mm inferior, 24 mm superior, 24 mm posterior, 20 mm anterior [employer] modular glenoid system glenosphere 36 +4 mm lateralized [employer] humeral stem 135 degrees size 7 [employer] suture cup size 36 [employer] humeral insert size 36 +6 mm constrained Indications: Please see complete medical record for details. Findings: Comminuted and displaced proximal humerus fracture. Largely intact rotator cuff greater and lesser tuberosity bone fragment. Biceps tendon incarcerated hemorrhagic between the fracture fragments. Marked glenohumeral cartilage loss and posterior and superior erosion Procedure Description: In the operating room, general anesthesia was induced. The patient was positioned beachchair on the operating room table. All bony prominences were well-padded. Preoperative antibiotics were administered. The shoulder was prepped and draped in the usual sterile fashion for shoulder arthroplasty. The correct patient, procedure, and side of the procedure were all verified prior to incision. The deltopectoral approach was preinjected with 0.25% bupivacaine containing epinephrine 30 cc. Care was taken to bluntly dissect the interval between the deltoid and pectoralis major muscles and to identify the cephalic vein within its fat stripe. The the vein was mobilized laterally. Subdeltoid space and conjoined tendon were freed of adhesions and hematoma. The long head of the biceps tendon was identified in a bicipital groove fragment between displaced lesser and greater tuberosity fragments.. The uppermost margin of the pectoralis major tendon was released from the proximal humerus. The long head of the biceps tendon was tenodesed in situ using SutureTape in a bregjc-ko-[id number] fashion securing it superior margin the pectoralis major tendon. The biceps tendon was amputated and followed proximally to identify the rotator interval. Horizontal mattress suture tape stitches were then placed in the subscapularis, supraspinatus, and infraspinatus anterior superiorly and posteriorly for identification and mobilization of the rotator cuff and bone fragments. The fragments were spread apart and numerous small comminuted pieces of bone were removed from the wound. The humeral head segment was facing posteriorly superiorly more than 90 degrees wrong direction carefully dissected from the surrounding bone and soft tissue and removed as a single large piece. All bone was saved on the back table for later cancellous bone grafting. The lesser and greater tuberosity bone fragments were debrided with a rongeur to use of all fragments for later repair. Appropriate coagulation was achieved especially interiorly. The proximal humerus was not then delivered up from the wound. The fracture was about the medial calcar with higher bone posteriorly laterally than anteriorly distal to the lesser tuberosity fracture fragment. A FiberTape was then doubled over and cerclage around the proximal humerus bone and also around the biceps tenodesis stump and secured with a Nice knot as prophylaxis against fracture propagation and directing the knot and tails distal to the bicipital groove for later securing the tuberosity repairs distally to prevent superior migration. Reamers were started taking care to maintain in line approach with the humeral canal. Sequential reaming was done from size 5 up to size 7 with the 8 being stopped due to bone chatter in the canal. Next, the broaches were sequentially used to open the proximal humerus starting with a size 5 and going up to size 7 and sunk to the best depth relative to the medial calcar fracture level while maintaining approximately 25 degrees retroversion. There was reasonably good fit and rotational control of the proximal humerus with this size. Attention was then turned to the glenoid and retractors were placed and a circumferential release performed using the long head of the biceps remnant to r emove soft tissue and calcified labral remnant about the glenoid rim. Care was taken inferiorly to work on bone only between 5 and 7:00 o'clock and bluntly elevate tissues inferiorly. There was posterior and superior erosion so the 10 degree augmented guide was placed by hand with the augment directed superiorly and slightly posteriorly. The guidepin was inserted and advanced just through the far cortex ensuring adequate central fixation length. Depth gauge was used to confirm length. The glenosphere sizer was used to confirm positioning and glenosphere size. The eccentric reamer was then used taking care to orient it appropriately. The central drill was used to prepare for the post. Wire removed, socket, and prepared glenoid surface all confirmed. The baseplate was then assembled, impacted, and fully compressed onto the glenoid surface. The locking guide was then used to drill and place appropriately lengthed inferior, superior, anterior, and posterior screws, which were shorter than typical owing to the oblique screw configuration of the augmented baseplate. The beif-lri-djdhzqcdi reamer was used to confirm adequate peripheral reaming. The glenosphere was applied with the project engineering director and then impacted to engage the Mcgee taper. It was then locked with appropriate countersinking of the setscrew. The glenosphere was inspected and found to have good fit, appropriate positioning, and no soft tissue or bony impingement. Attention was then turned back to the proximal humerus, which was delivered from the wound and maintained in external rotation. The suture cup reamer was not needed due to the fracture setting. The humeral trial cup was connected. Trialing was commenced with +3 mm liner. The shoulder was reduced and taken through range of motion. Trial components were built up to +6 mm liner, which had slightly lax stability but good tension and then built up to +6 mm spacer and +3 mm liner to achieve showing excellent stability, but somewhat high tens ion on the deltoid and conjoined tension. The trial components were removed from the proximal humerus. The wound was copiously irrigated with normal saline. Cancellous bone graft was then packed into the proximal humerus. The the proximal humeral stem and suture cup were assembled and brought over the proximal humerus. 2 pairs of suturetape were then loaded posteriorly for later posterior greater tuberosity repair. 2 fiberlinks were then shuttled in cinch through the greater tuberosity posteriorly. A small amount of vancomycin powder was distributed in the proximal humerus. The humeral component and suture cup were impacted into place taking care to maintain the appropriate version with good impaction and compression of the bone grafting specially filling the void anteriorly. This final stem sat slightly higher probably due to the bone grafting then the trial so trialing was done with a +6 mm liner and had good tension and stability. Due to the fracture setting, constrained liner was then trialed and had excellent stability with appropriate range of motion and soft tissue tension. The final +6 mm constrained liner was then connected, and range of motion, stability, and tension confirmed. The shoulder was copiously irrigated with Betadine and normal saline. Vancomycin powder was distributed deeply about the shoulder and through subcutaneous tissues. Remainder of the cancellous bone graft was then packed around the proximal metaphyseal portion of the implant beneath the tuberosity fragments which were able to be appropriately reduced to each other around the stem and lining up distally. The arm was placed about 30 degrees external rotation. The posterior loaded suture tapes were then shuttled around the greater tuberosity and infraspinatus with the preloaded FiberLink's. The pairs were then tied together securing the greater tuberosity posteriorly to the implant at the appropriate height also to the fracture level. An additional suture tape was loaded superiorly through the suture cup and then shuttled through the supraspinatus more superiorly in a horizontal mattress and then tied securing this portion of repair. Lastly a horizontal suture tape was placed through the suture cup and at the subscapularis lesser tuberosity bone tendon junction and similarly tied securing the anterior bone and rotator cuff to the implant construct. The anterior and posterior horizontal mattress sutures were then secured to each other compressing the tuberosities together and to the implant. The rotator interval was closed laterally using suture tape figure of 8. The supraspinatus repair tails were then brought distally to the FiberTape's from the cerclage and secured together achieving distal fixation. Lastly the tails from the suture tape most posteriorly were then brought anteriorly and distally and shuttled through for additional distal circumferential compressive repair. The arm was taken through internal and external rotation and the great er tuberosity and rotator cuff moved as a unit with the construct. The cephalic vein was then inspected and quite compressed from retraction during the case. It had a tear that was then coagulated. Appropriate hemostasis was confirmed. The deltopectoral interval was well approximated and closed burying the vein with 2-0 Monocryl. Subcutaneous tissue was irrigated then closed using 2-0 Monocryl in a buried interrupted fashion. Skin was closed using 3-0 Monocryl in a buried subcuticular fashion. Skin glue was applied to the incision. A silver impregnated bandage was placed over the incision. The extremity was placed into a shoulder immobilizer. The patient awoke from anesthesia without complication and was taken to the recovery room in stable condition.
[2023-03-15] MEDS: Albuterol/Ipratropium 3 ML UPD VIAL UPD (07:27)
[2023-03-15 07:33] LABS: Source Nasal/Nares
[2023-03-15 08:07] LABS: COVID-19 PCR Negative (Negative)
[2023-03-15] MEDS: ceFAZolin 2 GM/50 ML BAG IVPB (08:22)
[2023-03-15] MEDS: EPINEPHrine 10 MG/10 ML ML (08:59)
[2023-03-15] MEDS: Bupivacaine 0.25% Pres-Free 30 ML VIAL (08:59)
--- NOTE | 2023-03-15 11:00 | DI.RAD_ITS ---
Exam(s) XR SHOULDER RT COMPLETE 2+V EXAM: XR SHOULDER RT COMPLETE 2+V CLINICAL HISTORY: Shoulder arthritis. TECHNIQUE: 2D digital imaging was performed. COMPARISON: CR XR SHOULDER RT COMPLETE 2+V from 03/08/2023 FINDINGS: Two postop views: There has been placement of a reverse prosthesis which is appears to be in satisfactory position alig nhung. There is a transverse fracture in the humeral neck region again noted. IMPRESSION: As above. DATA REPOSITORY: RADIATION DOSE DELIVERED:
[2023-03-15] MEDS: HYDROmorphone 2 MG/ML SYR IVP (13:55)
[2023-03-15] MEDS: Normal Saline 10 ML VIAL IJ (13:57)
[2023-03-15] MEDS: traMADol 50 MG TAB PO (14:43)
--- NOTE | 2023-03-15 15:25 | W.ANESPOSTOP ---
Postoperative Evaluation Date, Time and Location Date Performed: 03/15/23 Time Performed: 15:25 Patient Location: Day Surgery Unit Vital Signs Most Recent Imported Vital Signs: Most Recent Vital Signs Temp Pulse Resp BP Pulse Ox 36.6 C 73 15 106/48 L 96 03/15/23 14:15 03/15/23 14:15 03/15/23 14:15 03/15/23 14:15 03/15/23 14:15 Pain Score Most Recent Pain Score: Most Recent Pain Score Pain Level 8 03/15/23 14:15 Assessment Mental Status: Awake (Alert & Oriented to Patient Baseline) Airway and Respiratory Function: Patent airway with normal (patient baseline) respiratory exam Cardiovascular Function: Hemodynamically Stable Hydration Status: Adequately Hydrated Nausea & Vomiting: No Nausea or Vomiting Pain: Pain is tolerable per patient Peripheral Nerve Block: Patient did not receive a nerve block Teaching Patient Teaching: Advised to seek followup for the following concerns (See explanation) Concerns: Other (Appreciated a slight new murmur at erbs point and increasing from tricuspid to maximum at mitral on preoperative exam. We continued due to the moderately urgent nature of this case, however I recommended the patient follow-up with her PCP at her leisure. ) Postoperative Comments:: Ordered an Incentive spirometer for the patient explained its use and will have nursing provide full education. I believe this will be important in patient postop care due to URI symptoms preceeding todays case.
== END 2023-03-15 16:55 | disposition home or self-care (01) ==
PROVIDERS: Nurse Anesthetist, Certified Registered; PCP Family Medicine; Visit Provider Student in an Organized Health Care Education/Training Program
PROC: (CPT 23472; principal; 2023-03-15 07:30)
DX: M19.011 Primary osteoarthritis, right shoulder; I10 Essential (primary) hypertension; F41.9 Anxiety disorder, unspecified; F32.A Depression, unspecified; S42.201A Unspecified fracture of upper end of right humerus, initial encounter for closed fracture; W19.XXXA Unspecified fall, initial encounter; M75.21 Bicipital tendinitis, right shoulder
CPT/HCPCS: 23472; C1713; 87635; 73030; J0131; J0690; J1100; J1170; J2001; J2250; J2371; J2405; J2704; J7620

== ENCOUNTER 2023-03-26 14:27 | Outpatient (CLI) | payer MEDICARE, BC, SELFPAY ==
--- NOTE | 2023-03-26 13:15 | DI.RAD_ITS ---
Exam(s) XR SHOULDER RT COMPLETE 2+V EXAM: XR SHOULDER RT COMPLETE 2+V CLINICAL HISTORY: POST OP F/U RIGHT RTSA. TECHNIQUE: 2D digital imaging was performed of the right shoulder. Two images were obtained. Grash ey and Y view views were obtained. COMPARISON: CR XR SHOULDER RT COMPLETE 2+V from 03/15/2023 FINDINGS: BONES: The proximal humeral fracture is again seen and unchanged. No bony destructive lesion is seen . JOINTS: No dislocation present. There are stable postsurgical changes of a right total reverse should er replacement. The orthopedic hardware appears in good position. The acromioclavicular joint appea rs unremarkable. SOFT TISSUE: The visualized lungs are clear. IMPRESSION: Stable right total reverse shoulder replacement. DATA REPOSITORY: RADIATION DOSE DELIVERED:
== END 2023-03-26 14:28 | disposition home or self-care (01) ==
LOC: DIORS 14:27
PROVIDERS: PCP Family Medicine; Referring Provider Family Medicine; Visit Provider Student in an Organized Health Care Education/Training Program
DX: S42.201D Unspecified fracture of upper end of right humerus, subsequent encounter for fracture with routine healing; X58.XXXD Exposure to other specified factors, subsequent encounter
CPT/HCPCS: 73030

== ENCOUNTER 2023-04-04 12:01 | Outpatient (REF) | payer MEDICARE, BC, SELFPAY ==
[2023-04-04 16:11] LABS: HCT 37.2 % (36.0-46.0); MCH 29.9 pg (27.0-33.0); MCHC 32.3 % (32.0-36.0); MCV 93 fL (80-95); MPV 12.1 fL (8.0-11.0); Platelet Count 269 10^3/uL (130-400); RBC 4.02 10^6/uL (3.93-5.22); RDW 14.8 % (11.7-14.6); RDW-SD 50.9 fL; WBC 4.51 10^3/uL (4.4-10.8)
[2023-04-04 17:24] LABS: ALT 26 U/L (14-59); AST 21 U/L (15-37); Albumin 3.5 g/dL (3.4-5.0); Alkaline Phosphatase 105 U/L (46-116); Bilirubin, Total 0.5 mg/dL (0.2-1.0); Calculated LDL 50 mg/dL (<100); Cholesterol 125 mg/dL (<200); HDL Cholesterol 66 mg/dL (40-60); Triglyceride 45 mg/dL (<150)
[2023-04-04 17:52] LABS: Bilirubin, Direct 0.2 mg/dL (0.0-0.2)
== END 2023-04-04 12:02 | disposition home or self-care (01) ==
LOC: NCHCN 12:01
PROVIDERS: PCP Family Medicine; Visit Provider Family Medicine
DX: E78.5 Hyperlipidemia, unspecified (principal); E80.6 Other disorders of bilirubin metabolism
CPT/HCPCS: 80061; 80076; 85027

== ENCOUNTER 2023-04-23 14:59 | Outpatient (CLI) | payer MEDICARE, BC, SELFPAY ==
--- NOTE | 2023-04-23 13:00 | DI.RAD_ITS ---
Exam(s) XR SHOULDER RT COMPLETE 2+V EXAM: XR SHOULDER RT COMPLETE 2+V CLINICAL HISTORY: F/U RIGHT RTSA. TECHNIQUE: 2D digital imaging was performed. COMPARISON: CT CT UPPER EXTREMITY RT WO from 03/13/2023 CR XR SHOULDER RT COMPLETE 2+V from 03/15/2023 CR XR SHOULDER RT COMPLETE 2+V from 03/26/2023 FINDINGS: Two views. Stable position alignment of the components of the reverse prosthesis. Fracture in the proximal evan ral diaphysis again noted which exhibits minimal change and which corresponds to the fracture seen on CT scan of 03/13/2023. The humeral stem component appears stable. No lucency seen around the stem. IMPRESSION: Continued stable appearance DATA REPOSITORY: RADIATION DOSE DELIVERED:
== END 2023-04-23 15:00 | disposition home or self-care (01) ==
PROVIDERS: PCP Family Medicine; Referring Provider Family Medicine; Visit Provider Student in an Organized Health Care Education/Training Program
DX: Z47.1 Aftercare following joint replacement surgery (principal); Z96.611 Presence of right artificial shoulder joint; M25.611 Stiffness of right shoulder, not elsewhere classified
CPT/HCPCS: 73030

== ENCOUNTER → 2023-05-10 08:49 | Outpatient (CLI) | payer MEDICARE, BC, SELFPAY ==
--- NOTE | 2023-05-10 08:00 | DI.RAD_ITS ---
Exam(s) XR SHOULDER RT COMPLETE 2+V EXAM: XR SHOULDER RT COMPLETE 2+V CLINICAL HISTORY: Pain S42.201A FX RT HUMERUS. TECHNIQUE: 2D digital imaging was performed. Three views. COMPARISON: CR XR SHOULDER RT COMPLETE 2+V from 04/23/2023 FINDINGS: BONES: No acute fracture is present. No bony destructive lesion is seen. JOINTS: No dislocation present. There has been no change in the alignment of the reverse shoulder pr osthesis. SOFT TISSUE: Normal. IMPRESSION: Stable appearance of shoulder prosthesis. DATA REPOSITORY: RADIATION DOSE DELIVERED:
== END ==
PROVIDERS: PCP Family Medicine; Visit Provider Student in an Organized Health Care Education/Training Program
DX: S80.01XA Contusion of right knee, initial encounter (principal); M94.261 Chondromalacia, right knee; X58.XXXA Exposure to other specified factors, initial encounter
CPT/HCPCS: 73030

== ENCOUNTER 2023-05-10 10:22 | Outpatient (CLI) | payer MEDICARE, BC, SELFPAY ==
[2023-05-10 10:29] LABS: Abs Immature Grans 0.02 10^3/uL (0.0-0.06); Absolute Basophil Count 0.04 10^3/uL (0.0-0.2); Absolute Eosinophil Count 0.21 10^3/uL (0.0-0.7); Absolute Lymphocyte Count 0.87 10^3/uL (1.2-3.4); Absolute Monocyte Count 0.51 10^3/uL (0.1-0.8); Absolute Neutrophil Count 4.76 10^3/uL (1.2-6.7); Basophils % 0.6; Eosinophils % 3.3; HCT 40.9 % (36.0-46.0); HGB 13.3 g/dL (11.2-15.7); Immature Grans % 0.3; Lymphocytes % 13.6; MCH 28.5 pg (27.0-33.0); MCHC 32.5 % (32.0-36.0); MCV 88 fL (80-95); MPV 11.1 fL (8.0-11.0); Neutrophils % 74.2; Platelet Count 282 10^3/uL (130-400); RBC 4.66 10^6/uL (3.93-5.22); RDW 13.9 % (11.7-14.6); RDW-SD 44.8 fL; WBC 6.41 10^3/uL (4.4-10.8)
[2023-05-10 10:31] LABS: ESR 5 mm/hr (0-30)
== END 2023-05-10 10:23 | disposition home or self-care (01) ==
LOC: LBO 10:23
PROVIDERS: PCP Family Medicine; Visit Provider Student in an Organized Health Care Education/Training Program
DX: S42.201A Unspecified fracture of upper end of right humerus, initial encounter for closed fracture (principal); X58.XXXA Exposure to other specified factors, initial encounter
CPT/HCPCS: 36415; 85652; 73030; 85025; 86140

== ENCOUNTER → 2023-05-13 01:02 | Outpatient (CLI) | payer MEDICARE, BC, SELFPAY ==
--- NOTE | 2023-05-13 07:30 | DI.MRI_ITS ---
Exam(s) MR LOWER JOINT RT WO EXAM: MR LOWER JOINT RT WO CLINICAL HISTORY: pain,INTERNAL DERANGEMENT,DJD,M23.91,M17.11. TECHNIQUE: Multiplanar multisequence MRI was performed. COMPARISON: MR MRI R LOWER JOINT WO CONT from 11/16/2016 CR XR KNEE RT 3V AP,LAT,DANIELLA from 03/08/2023 FINDINGS: BONES: No evidence of a fracture. Mild marrow edema seen in the anterior patella. JOINTS: There is mild cartilage thinning and subchondral edema in the medial aspect of the medial fem oral condyle. There is thinning of the articular cartilage overlying the patella. No effusion is pr esent. TENDONS: Extensor mechanism: Unremarkable. Medial retinaculum: Unremarkable. Lateral retinaculum: Unremarkable. Popliteus: Unremarkable. MUSCLES: Unremarkable. MENISCI: The medial meniscus is unremarkable. The lateral meniscus is unremarkable. SOFT TISSUES: Unremarkable. LIGAMENTS: Anterior Cruciate: Unremarkable. Posterior Cruciate: Unremarkable. Medial Collateral:Unremarkable. Lateral Collateral: Unremarkable. OTHER: IMPRESSION: 1. There is no evidence of an acute meniscal or ligament tear. 2. Contusions seen involving the anterior patella. 3. Small osteochondral injury involving the medial femoral condyle. 4. Cartilage thinning overlying the patellar facets. DATA REPOSITORY:
== END ==
PROVIDERS: PCP Family Medicine; Visit Provider Student in an Organized Health Care Education/Training Program
DX: S80.01XA Contusion of right knee, initial encounter (principal); M94.261 Chondromalacia, right knee; X58.XXXA Exposure to other specified factors, initial encounter
CPT/HCPCS: 73721

== ENCOUNTER → 2023-05-15 14:48 | Outpatient (BNVA) | payer MEDICARE, BC, SELFPAY | PROVIDERS: PCP Family Medicine; Referring Provider Family Medicine; Visit Provider Student in an Organized Health Care Education/Training Program | DX: S42.201D Unspecified fracture of upper end of right humerus, subsequent encounter for fracture with routine healing (principal); X58.XXXD Exposure to other specified factors, subsequent encounter ==

== ENCOUNTER 2023-06-11 14:47 | Outpatient (CLI) | payer MEDICARE, BC, SELFPAY ==
--- NOTE | 2023-06-11 13:45 | DI.RAD_ITS ---
Exam(s) XR SHOULDER RT COMPLETE 2+V EXAM: XR SHOULDER RT COMPLETE 2+V CLINICAL HISTORY: TSA, fx, pain. TECHNIQUE: 2D digital imaging was performed. Five views. COMPARISON: CR XR SHOULDER RT COMPLETE 2+V from 05/10/2023 FINDINGS: BONES: No acute fracture is present. No bony destructive lesion is seen. JOINTS: No dislocation present. There has been no change in the alignment of the reverse shoulder pr osthesis. SOFT TISSUE: Normal. IMPRESSION: Stable appearance of reverse shoulder prosthesis. DATA REPOSITORY: RADIATION DOSE DELIVERED:
== END 2023-06-11 14:48 | disposition home or self-care (01) ==
LOC: DIORS 14:48
PROVIDERS: PCP Family Medicine; Referring Provider Family Medicine; Visit Provider Student in an Organized Health Care Education/Training Program
DX: S42.201D Unspecified fracture of upper end of right humerus, subsequent encounter for fracture with routine healing (principal); X58.XXXD Exposure to other specified factors, subsequent encounter
CPT/HCPCS: 73030

== ENCOUNTER 2023-08-27 14:19 | Outpatient (CLI) | payer MEDICARE, BC, SELFPAY ==
--- NOTE | 2023-08-27 12:45 | DI.RAD_ITS ---
Exam(s) XR SHOULDER RT COMPLETE 2+V EXAM: XR SHOULDER RT COMPLETE 2+V CLINICAL HISTORY: F/U FRACTURE. TECHNIQUE: 2D digital imaging was performed. COMPARISON: CR XR SHOULDER RT COMPLETE 2+V from 05/10/2023 CR XR SHOULDER RT COMPLETE 2+V from 06/11/2023 FINDINGS: Two views. Reverse right shoulder prosthesis again noted with no significant change in the alignment of the comp onents of the reverse prosthesis. No new fractures identified. Appearance is stable and unchanged f rom 05/10/2023 and 1 24. IMPRESSION: Stable appearance DATA REPOSITORY: RADIATION DOSE DELIVERED:
== END 2023-08-27 14:20 | disposition home or self-care (01) ==
LOC: DIORS 14:19
PROVIDERS: PCP Family Medicine; Referring Provider Family Medicine; Visit Provider Student in an Organized Health Care Education/Training Program
DX: Z47.1 Aftercare following joint replacement surgery (principal); Z96.611 Presence of right artificial shoulder joint; M25.611 Stiffness of right shoulder, not elsewhere classified
CPT/HCPCS: 99213; 73030

== ENCOUNTER 2024-02-10 16:14 | Outpatient (REF) | payer MEDICARE, BC, SELFPAY ==
[2024-02-10 16:53] LABS: BUN 12 mg/dL (7-18); CREATININE 0.7 mg/dL (0.55-1.02); Calcium 10.1 mg/dL (8.5-10.1); Chloride 101 mmol/L (98-107); Estimated GFR 90.14 (mL/min/1.73m2); Glucose 100 mg/dL (74-106); Magnesium 2.4 mg/dL (1.8-2.4); Potassium 4.2 mmol/L (3.5-5.1); Sodium 137 mmol/L (136-145)
== END 2024-02-10 16:15 | disposition home or self-care (01) ==
LOC: NCHCN 16:14
PROVIDERS: PCP Family Medicine; Visit Provider Student in an Organized Health Care Education/Training Program
DX: I10 Essential (primary) hypertension (principal)
CPT/HCPCS: 80048; 83735

== ENCOUNTER 2024-03-03 15:44 | Outpatient (CLI) | payer MEDICARE, BC, SELFPAY ==
--- NOTE | 2024-03-03 13:20 | DI.RAD_ITS ---
Exam(s) XR SHOULDER RT COMPLETE 2+V EXAM: XR SHOULDER RT COMPLETE 2+V CLINICAL HISTORY: F/U RIGHT RTSA. TECHNIQUE: 2D digital imaging was performed. Five views. COMPARISON: CR XR SHOULDER RT COMPLETE 2+V from 04/23/2023 CR XR SHOULDER RT COMPLETE 2+V from 08/27/2023 FINDINGS: BONES: No acute fracture is present. No bony destructive lesion is seen. JOINTS: No dislocation present. Stable alignment of the reverse shoulder prosthesis. SOFT TISSUE: Normal. IMPRESSION: Stable appearance of shoulder prosthesis and surrounding bone. DATA REPOSITORY: RADIATION DOSE DELIVERED:
== END 2024-03-03 15:45 | disposition home or self-care (01) ==
LOC: DIORS 15:44
PROVIDERS: PCP Family Medicine; Visit Provider Student in an Organized Health Care Education/Training Program
DX: S42.201D Unspecified fracture of upper end of right humerus, subsequent encounter for fracture with routine healing (principal); X58.XXXD Exposure to other specified factors, subsequent encounter; M25.611 Stiffness of right shoulder, not elsewhere classified
CPT/HCPCS: 99213; 73030

== ENCOUNTER 2024-03-05 01:14 | Outpatient (CLI) | payer MEDICARE, BC, SELFPAY ==
--- NOTE | 2024-03-05 | DI.MAMMO_ITS ---
Exam(s) MAMMO SCREENING EXAM: MAMMO SCREENING CLINICAL HISTORY: SCREENING MAMMO Z12.39. TECHNIQUE: Bilateral full field digital CC and MLO mammographic images were obtained with 3D tomosyn thesis and utilizing computer aided detection (CAD). COMPARISON: Prior mammograms were reviewed. FINDINGS: There has been no significant change in the appearance and distribution of the fibroglandular tissue. Finding cyst with skin mole in the inferolateral aspect of the right breast is unchanged from 2014 There are no new spiculated masses nor malignant appearing microcalcification groups. There is no significant architectural distortion nor skin thickening-retraction. IMPRESSION: No radiographic evidence of malignancy. BI-RADS Category 1 - Negative Breast Density - Category B - Scattered areas of fibroglandular density Breast density Category C or D implies that the patient has dense breast tissue. Dense breast tissue can make it harder to find cancer on a mammogram. Dense breast tissue is also associated with an incr eased risk of breast cancer. This information about the result of the mammogram report was provided to the patient to raise their awareness. Use this report when you speak with the patient about their risks for breast cancer, which includes their family history. At that time, you may recommend additional screening tests (Ultrasoun d or MRI) as these tests may add significant information. A negative radiographic report should not delay biopsy if a dominant or clinically suspicious mass is present. Up to ten percent of cancers are not identified on mammography. A negative report may reinforce clinical impression. Adenosis and dense breasts may obscure an underlying neoplasm. False positive reports average 6 to 10%. Patient will receive a letter notifying them of these results.
== END 2024-03-05 01:34 ==
LOC: DI 01:14
PROVIDERS: PCP Family Medicine; Visit Provider Student in an Organized Health Care Education/Training Program
DX: Z12.31 Encounter for screening mammogram for malignant neoplasm of breast (principal)
CPT/HCPCS: 77063; 77067

== ENCOUNTER 2024-07-13 12:36 | Outpatient (REF) | payer MEDICARE, BC, SELFPAY ==
[2024-07-13 19:09] LABS: ALT 70 U/L (14-59); AST 42 U/L (15-37); Albumin 3.9 g/dL (3.4-5.0); Alkaline Phosphatase 130 U/L (46-116); Anion Gap 5.9 mmol/L (3-11); BUN 7 mg/dL (7-18); Bilirubin, Total 1.07 mg/dL (0.2-1.0); CO2 31.1 mmol/L (21.0-32.0); CREATININE 0.7 mg/dL (0.55-1.02); Calcium 9.8 mg/dL (8.5-10.1); Chloride 100 mmol/L (98-107); Estimated GFR 90.14 (mL/min/1.73m2); Glucose 81 mg/dL (74-106); Sodium 137 mmol/L (136-145); Total Protein 6.7 g/dL (6.4-8.2)
== END 2024-07-13 12:37 | disposition home or self-care (01) ==
LOC: NCHCN 12:36
PROVIDERS: PCP Student in an Organized Health Care Education/Training Program; Visit Provider Student in an Organized Health Care Education/Training Program
DX: I10 Essential (primary) hypertension (principal)
CPT/HCPCS: 80053

== ENCOUNTER 2024-10-14 09:05 | Outpatient (REF) | payer MEDICARE, BC, SELFPAY ==
[2024-10-14 15:49] LABS: ALT 47 U/L (14-59); AST 30 U/L (15-37); Albumin 3.5 g/dL (3.4-5.0); Alkaline Phosphatase 110 U/L (46-116); Anion Gap 2.1 mmol/L (3-11); BUN 16 mg/dL (7-18); Bilirubin, Total 0.9 mg/dL (0.2-1.0); CO2 32.9 mmol/L (21.0-32.0); CREATININE 0.7 mg/dL (0.55-1.02); Calcium 9.7 mg/dL (8.5-10.1); Chloride 104 mmol/L (98-107); Estimated GFR 90.14 (mL/min/1.73m2); Glucose 70 mg/dL (74-106); Potassium 4.5 mmol/L (3.5-5.1); Sodium 139 mmol/L (136-145); Total Protein 6.4 g/dL (6.4-8.2)
== END 2024-10-14 09:06 | disposition home or self-care (01) ==
LOC: NCHCN 09:05
PROVIDERS: PCP Student in an Organized Health Care Education/Training Program; Visit Provider Student in an Organized Health Care Education/Training Program
DX: E78.49 Other hyperlipidemia (principal)
CPT/HCPCS: 80053

== ENCOUNTER 2025-01-07 10:15 | Outpatient (REF) | payer MEDICARE, BC, SELFPAY ==
[2025-01-07 19:00] LABS: COMMENT (LAB VIEW ONLY) 80.42 mg/dL; Microalb ug/mg Crea 9.5 ug/mg Cr
== END 2025-01-07 10:16 | disposition home or self-care (01) ==
LOC: NCHCN 10:15
PROVIDERS: PCP Student in an Organized Health Care Education/Training Program; Visit Provider Student in an Organized Health Care Education/Training Program
DX: I10 Essential (primary) hypertension (principal)
CPT/HCPCS: 82043; 82570

== ENCOUNTER 2025-03-02 14:29 | Outpatient (CLI) | payer MEDICARE, BC, SELFPAY ==
--- NOTE | 2025-03-02 12:45 | DI.RAD_ITS ---
Exam(s) XR SHOULDER RT COMPLETE 2+V EXAM: XR SHOULDER RT COMPLETE 2+V CLINICAL HISTORY: F/U RIGHT RTSA. TECHNIQUE: 2D digital imaging was performed. Three images were obtained. Grashey, Y and axillary views were obtained. COMPARISON: CR XR SHOULDER RT COMPLETE 2+V from 03/03/2024 FINDINGS: BONES: There are stable post operative changes of a right reverse total shoulder arthroplasty present. No fracture or dislocation. JOINTS: The orthopedic hardware is in good position. No evidence of hardware loosening. SOFT TISSUE: Normal. IMPRESSION: Stable right reverse total shoulder arthroplasty. DATA REPOSITORY: RADIATION DOSE DELIVERED:
== END 2025-03-02 14:30 | disposition home or self-care (01) ==
LOC: DIORS 14:29
PROVIDERS: PCP Student in an Organized Health Care Education/Training Program; Visit Provider Student in an Organized Health Care Education/Training Program
DX: M25.611 Stiffness of right shoulder, not elsewhere classified (principal); Z96.611 Presence of right artificial shoulder joint; S42.201D Unspecified fracture of upper end of right humerus, subsequent encounter for fracture with routine healing; X58.XXXD Exposure to other specified factors, subsequent encounter
CPT/HCPCS: 99214; 73030

== ENCOUNTER 2025-03-08 02:05 | Outpatient (CLI) | payer MEDICARE, BC, SELFPAY ==
--- NOTE | 2025-03-08 05:45 | DI.CT_ITS ---
Exam(s) CT UPPER EXTREMITY RT WO EXAM: CT UPPER EXTREMITY RT WO CLINICAL HISTORY: ? LOOSENING OF HARDWARE, BONY FRAGMENT,stiffness rt shoulder,closed fx rt TECHNIQUE: Imaging Protocol: Axial computed tomography images with coronal and sagittal reformatted images were created and reviewed. CONTRAST MATERIAL: Noncontrast COMPARISON: CT CT UPPER EXTREMITY RT WO from 03/13/2023 CR XR SHOULDER RT COMPLETE 2+V from 05/10/2023 CR XR SHOULDER RT COMPLETE 2+V from 06/11/2023 CR XR SHOULDER RT COMPLETE 2+V from 03/03/2024 CR XR SHOULDER RT COMPLETE 2+V from 03/02/2025 FINDINGS: Bones: There is no evidence of fracture or dislocation. The alignment of the prosthesis is satisfactory. There are no abnormal surrounding lucencies. There is some surrounding heterotopic calcification which appears unchanged. No cellulitic or osteomyelitic changes are identified. No suspicious lytic or sclerotic lesions are identified. Soft Tissues: Normal. IMPRESSION: Stable appearance reverse shoulder prosthesis. RADIATION DOSE DELIVERED: 215.62mGy.cm Total DLP DATA REPOSITORY: All CT scans at this facility are submitted to the National Radiology Data Registry (NRDR) Dose Index Registry (DIR) with the [employer] ([employer]). RADIATION OPTIMIZATION: All CT scans at this facility use at least one of these dose optimization techniques: automated exposure control; mA and/or kV adjustment per patient size (includes targeted exams where dose is matched to clinical indication); or iterative reconstruction.
== END 2025-03-08 02:25 ==
PROVIDERS: PCP Student in an Organized Health Care Education/Training Program; Visit Provider Student in an Organized Health Care Education/Training Program
DX: Z98.890 Other specified postprocedural states (principal); M25.611 Stiffness of right shoulder, not elsewhere classified
CPT/HCPCS: 73200

== ENCOUNTER 2025-03-08 03:26 | Outpatient (CLI) | payer MEDICARE, BC, SELFPAY ==
[2025-03-08 08:09] LABS: Abs Immature Grans 0.01 10^3/uL (0.0-0.06); HCT 42.9 % (36.0-46.0); HGB 14.0 g/dL (11.2-15.7); Immature Grans % 0.3 %; MCH 29.7 pg (27.0-33.0); MCHC 32.6 % (32.0-36.0); MCV 91 fL (80-95); MPV 10.4 fL (8.0-11.0); Platelet Count 261 10^3/uL (130-400); RBC 4.72 10^6/uL (3.93-5.22); RDW 13.9 % (11.7-14.6); RDW-SD 46.7 fL; WBC 3.90 10^3/uL (4.4-10.8)
[2025-03-08 08:13] LABS: ESR 1 mm/hr (0-30)
[2025-03-08 08:37] LABS: C-Reactive Protein < 0.50 mg/dL (<or=0.5)
== END 2025-03-08 03:27 | disposition home or self-care (01) ==
PROVIDERS: PCP Student in an Organized Health Care Education/Training Program; Visit Provider Physician Assistant
DX: M25.611 Stiffness of right shoulder, not elsewhere classified (principal)
CPT/HCPCS: 36415; 85652; 73200; 85025; 86140

== ENCOUNTER → 2025-03-17 13:33 | Outpatient (BNVA) | payer MEDICARE, BC, SELFPAY | PROVIDERS: PCP Student in an Organized Health Care Education/Training Program; Referring Provider Student in an Organized Health Care Education/Training Program; Visit Provider Student in an Organized Health Care Education/Training Program | DX: S42.201D Unspecified fracture of upper end of right humerus, subsequent encounter for fracture with routine healing (principal); M25.611 Stiffness of right shoulder, not elsewhere classified; Z96.611 Presence of right artificial shoulder joint; X58.XXXD Exposure to other specified factors, subsequent encounter | CPT/HCPCS: 99214 ==

== ENCOUNTER 2025-04-29 10:37 | Inpatient (IN) | payer MEDICARE, BC, SELFPAY ==
[2025-04-29] VITALS (42 sets, daily range): BP systolic 88–159; BP diastolic 45–94; PULSE 45–73; RESP 12–20; TEMP 36–37; O2SAT 95–100; BMI 27.6
[2025-04-29] MEDS: Lactated Ringers 1,000 ML 30 ML IV ×2 (06:40→11:26)
--- NOTE | 2025-04-29 06:46 | W.ANESPRE ---
General Info Date of Service Date Performed: 04/29/25 Height: 5 ft 4 in Weight: 73.1 kg Body Mass Index (BMI): 27.6 Surgical Procedure: Operation Date: 04/29/25 07:40 Proposed Procedure Side Surgeon p Partial Revision Reverse Total Shoulder Arthroplasty w/Contracture Release & Excision of Bone Fragments Right Elie Ardon MD Meds Allergies and Home Medications Allergies Allergy/AdvReac Type Severity Reaction Status Date / Time latex Allergy Intermediate Skin Rash Verified 04/29/25 06:06 isosorbide (Isosorbide) AdvReac Intermediate Headache Verified 04/29/25 06:06 Home Medication ?Medication ?Instructions ?Recorded multivitamin 1 tab PO DAILY 12/03/13 sumatriptan succinate 100 mg tablet 100 mg PO DAILY PRN 12/03/13 fluocinolone 0.01 % topical 1 applic topical DIRECTED 03/08/23 solution naproxen sodium 220 mg capsule 220 mg PO BID PRN 06/11/23 amlodipine 2.5 mg tablet 2.5 mg PO DAILY 03/02/25 hydrochlorothiazide 12.5 mg tablet 12.5 mg PO DAILY 04/27/25 olmesartan 40 mg tablet 40 mg PO DAILY 04/27/25 timolol maleate 0.5 % eye drops 1 drp ophthalmic (eye) BID 04/27/25 Current Visit Medications: Current Medications Generic Name Dose Route Start Last Admin Trade Name Freq PRN Reason Stop Dose Admin Ringer's Solution 1,000 mls @ 30 mls/hr 04/29/25 06:00 04/29/25 06:40 IV 04/29/25 23:59 30 mls/hr INFUSION MASON Administration Cefazolin Sodium/Dextrose 2 gm in 50 mls @ 100 mls/hr 04/29/25 06:00 Ancef Duplex IVPB 04/29/25 23:59 PREOP MASON Tranexamic Acid/Sodium Chloride 1,000 mg in 100 mls @ 600 mls/hr 04/29/25 06:00 IVPB 04/29/25 23:59 PREOP MASON Sodium Chloride 0 ml 04/29/25 06:00 Normal Saline Flush 10 Ml Syr IV 04/29/25 23:59 PRN PRN Sodium Chloride 0 ml 04/29/25 06:00 Normal Saline 10 Ml Vial IJ 04/29/25 23:59 DIRECTED PRN Sterile Water 0 ml 04/29/25 06:00 Water,Injection,Sterile 10 Ml Vial IJ 04/29/25 23:59 DIRECTED PRN PFSH Active Problems Active Problems: Problem Status Onset Code Stiffness of right shoulder joint Acute M25.611 HTN (hypertension) Chronic I10 Closed fracture of right proximal humerus Acute 03/08/23 S42.201A Degenerative joint disease of right knee Acute M17.11 Internal derangement of right knee Acute M23.91 Surgical History Surgical History Hx of shoulder replacement Status post left foot surgery Hammer toe, per pt Previous back surgery Status post arthroscopy of right knee (02/14/17) Partial medial meniscectomy Tobacco Smoking/Tobacco Use Status: Never Passive smoking exposure: Yes Alcohol Alcohol Intake: never Substance Use Substance use: Never Substance use type: does not use Vital Signs and Lab Results Vital Signs Most Recent Vital Signs in EMR: Most Recent Vital Signs Temp Pulse Resp BP Pulse Ox 37 C 56 L 16 152/73 H 99 04/29/25 05:58 04/29/25 05:58 04/29/25 05:58 04/29/25 05:58 04/29/25 05:58 Anesthesia Assessment and Plan Anesthesia History Personal History: No History of Anesthesia Complications Family History: No Family History of Anesthesia Complications Exercise Tolerance Exercise Tolerance: Metabolic Equivalents>4 Pertinent Negatives Pertinent Negatives: No Symptoms of GERD and No Major Pulmonary Symptoms or Complaints Cardiac & Pulmonary Exam Cardiac Exam: Heart Murmur Present (Mild) Pulmonary Exam: Clear Bilateral Breath Sounds Implantable Cardiac Device Does patient have a Pacemaker or an ICD?: No Airway Exam Known Difficult Airway: No Mallampati Class: 2 Mouth Opening: Normal (> 3cm) Thyromental Distance: Greater than 3 cm Neck Range of Motion: Full ROM Neck Circumference: Normal Teeth Condition: Removable Dentures/Plates Upper and Removable Dentures/Plates Lower ASA Classification ASA Score: ASA 2 Emergency Case?: No NPO Status NPO Status: NPO Clears >2 hours, Solids >8 hours Anesthesia Plan Resuscitation Status: Full Code Anesthesia Technique: General Anesthesia Airway Planned: Endotracheal Tube Pain Management: Surgeon and patient request nerve block Monitors Used: Standard Monitors and SedLine
--- NOTE | 2025-04-29 07:07 | W.PM.DSUDISC ---
Date of service: 04/29/25 Discharge Plan Disposition Patient Disposition: Home Anticipated Discharge Date/Time: 04/30/25 15:30 Condition: Stable Discharge Details Reason For Visit: Painful Right Shoulder Replacement Admit Date/Time: 04/29/25 10:37 Admit Provider: Elie Ardon Attending Provider: Elie Ardon Primary Care Provider: Claude Juárez Hospital Course Hospital Course: Shoulder surgery 04/29/2025 with inpatient admission for IV antibiotics while following preliminary cultures cultures. Patient did very well and was discharged postop day #1 on oral antibiotic coverage for possible indolent cutibacterium acnes infection. Home Meds and New Rx's Prescriptions: New naproxen 250 mg tablet 250 mg PO BID PRN (Reason: Moderate pain) Qty: 30 0RF tramadol 50 mg tablet 50 mg PO TID PRNQty: 18 0RF amoxicillin 500 mg capsule 500 mg PO TID 14 Days Qty: 42 0RF Bio-K plus 50 billion cell capsule,delayed release(DR/EC) 1 cap PO DAILY 14 Days Qty: 14 0RF Continued amlodipine 2.5 mg tablet 2.5 mg PO DAILY naproxen sodium 220 mg capsule 220 mg PO BID PRN multivitamin 1 EACH tablet 1 tab PO DAILY sumatriptan succinate 100 MG tablet 100 mg PO DAILY PRN fluocinolone 0.01 % solution 1 applic TOPICAL DIRECTED Patient Comments: APPLY A SMALL AMOUNT TO THE SKIN TWO TIMES A DAY TO SCALP RASH hydrochlorothiazide 12.5 mg tablet 12.5 mg PO DAILY Patient Comments: TAKE ONE TABLET BY MOUTH EVERY DAY olmesartan 40 mg tablet 40 mg PO DAILY Patient Comments: TAKE ONE TABLET BY MOUTH EVERY DAY timolol maleate 0.5 % drops 1 drp ophthalmic (eye) BID Patient Comments: INSTILL 1 DROP INTO BOTH EYES TWICE DAILY Discharge Instructions Additional Instructions: Surgery: Right revision reverse total shoulder arthroplasty (entire humeral side & glenosphere), removal of displaced tuberosity/heterotopic bone, and conjoint tendon release 04/29/2025 Activity: Do not lift anything heavier than a coffee. You should keep your arm at your side in a relatively neutral position at all times except for gentle range of motion exercises, physical therapy, and essential activities. You should use the sling whenever you are out of the house. At home it is best to remove the sling and rest the arm on a pillow at your side or support the operative side with your other hand. A physical therapy prescription will be sent electronically to start in about 3 weeks. CONSERVATIVE reverse TSA Protocol. Prescriptions: Amoxicillin 500 mg take 1 tab 3 times each day to prevent infection Use daily probiotic and/or yogurt while on antibiotics to prevent GI upset Naproxen 250 mg take 1 every 12 hours with a meal as needed for moderate pain Tramadol 50 mg take 1 every 8 hours as needed for severe pain You may use [id number] Tylenol (acetaminophen) as needed for mild pain. These pain medications may be taken all at once or in different combinations as needed. Also, recommend Colace (docusate) as a stool softener as surgery and pain medicine cause constipation. You may try [id number] diphenhydramine (Benadryl) 25-50 mg nightly as a sleep aid Dressings: Leave dressing in place until follow-up. Keep clean and dry at all times. No showers please. Follow-up: 10-[address] Ardon You may take off the leg compression stockings this evening at home. You may also leave them on a few days longer if you have a history of leg swelling or edema. Please call the office during business hours with any questions or concerns. Let us know right away if you develop any redness, drainage, fevers, chest pain, or trouble breathing. Do not drink alcohol or drive for at least 24 hours after anesthesia. Stand Alone Forms: Anesthesia Discharge Inst., Anes.Nerve Block Instructions, Brenda Dahl (DSU), Portal Information Referrals: Elie Ardon MD [ [facility] STAFF PHYSICIAN, Orthopaedic Surgical] - 05/11/25 1:00 pm Activity:: see above instructions Equipment/Supplies:: Sling, CryoCuff Diet:: As Tolerated Discharge Orders Discharge Orders: Discharge Order (Routine); Ordered 04/30/25 Ordered By: Elie Ardon DS: Diagnosis Discharge Diagnosis (1) Closed fracture of right proximal humerus: Status: Acute (2) Stiffness of right shoulder joint: Status: Acute
--- NOTE | 2025-04-29 07:35 | ROE_ITS ---
Operative Note Operative Note PRE-OP DIAGNOSIS: Right: 1. Painful Fracture Reverse TSA 2. Displaced tuberosity/heterotopic bone 3. Stiffness 4. Conjoint tendonitis POST-OP DIAGNOSIS: same PROCEDURE: Right: 1. Revision reverse total shoulder arthroplasty, CPT # 47533: Entire humeral side and partial glenoid side 2. Contracture release, CPT # 96931 including removal of displaced tuberosities and heterotopic bone 3. Conjoint tendon release, CPT # 31590 The physician office assistant was medically required as this procedure involves retraction, protection of neurovascular structures, and manipulation of multiple instruments and implants at the same time, which cannot be done without a skilled physician office assistant. SURGEON: Elie Ardon PLASTIC MOLDING OPERATOR: Alejandro Gomes ANESTHESIA TYPE: Local By Surgeon, General LMA/ETT and Primary Nerve Block Refer to Anesthesia Record ESTIMATED BLOOD LOSS: 250 COMPLICATIONS: None Patient was transported to: PACU Patient's condition: stable Implants: [employer] modular glenoid system baseplate 24 mm, 10 degree full wedge with 20 mm post? stable and retained [employer] modular glenoid system peripheral locking screws 24 mm anterior superior, 24 mm anterior inferior, 20 mm posterior superior, 20 mm posterior inferior?all removed and replaced [employer] modular glenoid system glenosphere 36 +4 mm lateralized - removed and replaced [employer] humeral stem 135 degrees size 7?removed and replace [employer] suture cup size 36 central offset?removed and replaced [employer] reverse spacer size 36+6 mm?new [employer] humeral insert size 36 +3 mm constrained-new Indications: Please see complete medical record for details. Findings: Significant anterior and superior heterotopic bone likely from displaced lesser and greater tuberosities. Rotator cuff actually adherent and repaired to this bone. Conjoined tendon not overly taut tight or impinging. Stable reverse replacement with significantly improved motion after bony resection. Humeral side likely stable fibrous union without any significant bony in or on growth. Glenoid baseplate completely stable after removing a locking screws. No overt signs of infection. Procedure Description: In the operating room, general anesthesia was induced. The patient was positioned beachchair on the operating room table. All bony prominences were well-padded. Preoperative antibiotics were administered. The shoulder was prepped and draped in the usual sterile fashion for shoulder arthroplasty. The correct patient, procedure, and side of the procedure were all verified prior to incision. The prior deltopectoral excision was preinjected with 0.25% 30 cc bupivacaine containing epinephrine. The incision were incised and the deltopectoral interval reopened. There was no purulence or signs of infection for healing problem. The conjoined tendon was protected medially and not overly taut or impinging, but given persistent anterior discomfort plan was for release at the end. The large displaced tuberosities had formed a conglomerate of heterotopic bone anteriorly through superiorly well adhered to the rotator cuff and scarred over the replacement toward the proximal humerus laterally. The numerous repair sutures were also well covered up and healed over. There was really no overt sign of infection problem. Care was taken to carefully peel soft tissues and rotator cuff all off heterotopic bone which was then removed in piecemeal and in larger pieces. It was thoroughly and meticulously removed from the anterior and superior space. After bony removal, the shoulder joint remained stable and range of motion seemed dramatically improved. The conjoined remained not taut. The surgery probably could have stopped here, but there was slight abrasion and wear on the polyethylene anteriorly likely from the overlying bone that been present so the shoulder placement was not dislocated delivering the proximal meters anteriorly and superiorly. Care was taken to protect the glenosphere. The polyethylene was removed, which takes force to detach from the suture cup in the proximal humerus. With the polyethylene removed the shoulder joint was examined without any signs of other problems, the glenosphere was stable, there was no significant bone noted posteriorly or superiorly or anywhere else hiding. Prior to replacing the polyethylene, the proximal humeral component was tested. It was largely stable to both traction and rotation, but on more vigorous testing it demonstrated some motion and after maybe breaking up some fibrous union on testing it quite readily was delivered up and out of the proximal humerus suture cup and humeral stem and all. Again, no purulence or overt signs of infection. It appeared like there was fibrous tissue healed around, but no garcia bony healing. Probably owing to the poor bone quality and displaced greater lesser tuberosities with fairly minimal bone present around the proximal humeral component in the lateral proximal bone still present in a fibrous union position with the remainder of the shaft intact. At this point, as the proximal humerus was not well-fixed, I wanted to treat the case as a potential infection. Infection had fairly confidently been ruled out with follow-up visits and complaints that seem specific to the heterotopic bone displaced tuberosities impingement and discomfort limiting motion anteriorly as opposed to an infection type persistent pain over the years. Lab work had also been completely normal and negative for any inflammation or infection. Still, abundance of caution so the glenoid side needed to be tested. The glenosphere was removed with the extractor. The placed plate looked okay. The 4 locking screws were removed. The baseplate extractor applied and stressed the baseplate in rotation and distraction with backslapping. The baseplate remained completely stable with no motion micromotion or ability be removed. I did not force the issue as the baseplate was well-fixed and this really did not seem like an infection setting. I was worried if I removed this well-fixed baseplate, there would be no chance to reapply another and achieve reasonably good fixation and the patient would be doomed to a multiply staged surgery without great reason. I was also thinking that if this were truly a chronic multiple years of infection, the baseplate should be loose, or that unfortunately all the components would have to come out at some point and probably require prolonged treatment with antibiotic spacer, which was not available in the setting. Again, proceeding as cautiously the shoulder joint was copiously debrided and then irrigated including curetting the humeral canal Betadine Irrisept used, 6 L of saline used, and all reasonable equipment changed and all gloves changed as well treating the case as a potential infection while retaining the glenoid baseplate and thoroughly cleaning and debriding everything including initial chlorhexidine scrub thoroughly scrubbing and manually cleaning the retained baseplate. The baseplate locking screws were then measured confirmed to be correct and reapplied. Glenosphere was then reapplied as well. It had stable fixation. The proximal humerus was then delivered, despite the limited and challenging bone stock remaining, going from size 5 up to the same size 7 did achieve remarkably good fixation with inability to rotate or remove the stem without vigorous backslapping. The stem probably sat slightly deeper in the canal, which was good as it would allow greater bone surface for healing around it. The shoulder was reduced and trialed with +9 mm construct showing good stability. Humeral trials were removed. Vancomycin powder 1 g distributed in the humeral canal, some have been placed in the glenoid baseplate screw holes. And more widely distributed about the soft tissues. The humeral stem was assembled and then impacted taking care to maintain appropriate version and care to not cause any iatrogenic fracture. It did fit proximal humerus bone stock well with rather surprisingly good rotation and resisting extraction. There was no need for cementation. Trialing confirmed +9 mm construct. The 6 mm spacer was then attached followed by the 3 mm constrained size 36 liner. The shoulder joint reduced and demonstrated good motion and stability. Conjoined tendon was then reassessed and although it was not at all taut, again given this case was done for anterior shoulder pain it was released from the coracoid to avoid any potential impingement or loss of internal rotation problems pain that cannot be appreciated here. The shoulder was copiously irrigated with Betadine and normal saline another 3 L in total. Some remaining vancomycin powder was distributed deeply about the shoulder and through the subcutaneous tissues. Deltopectoral interval was well-approximated. Subcutaneous tissue was irrigated then closed using 2-0 Monocryl in a buried interrupted fashion. Skin was closed using 3-0 Monocryl in a buried subcuticular fashion. Skin glue was applied to the incision. A silver impregnated bandage was placed over the incision. The extremity was placed into a shoulder immobilizer. The patient awoke from anesthesia without complication and was taken to the recovery room in stable condition. The patient will be admitted instead of going home for IV antibiotics and following cultures for at least 24 hours. Will likely treat as potential infection and consider a course of IV versus p.o. antibiotics for something that could cause indolent infection like cutibacterium acnes, which can usually re asonably be treated or prophylax in the setting with amoxicillin. Date of Procedure: 04/29/25
[2025-04-29] MEDS: ceFAZolin 2 GM/50 ML BAG IVPB (08:00)
[2025-04-29] MEDS: TRANEXAMIC ACID/SOD. CHL. 1,000 MG/100 ML BAG 600 MG IVPB (08:07)
[2025-04-29] MEDS: Bupivacaine 0.25% Pres-Free W/EPI 30 ML VIAL (08:29)
[2025-04-29] MEDS: Vancomycin 1,000 MG VIAL 1000 MG (08:30)
--- NOTE | 2025-04-29 09:40 | W.ANESNERVE ---
Nerve Block Single Injection Procedure Date and Time Date Performed: 04/29/25 Procedure Start: 07:27 Location Where Procedure Performed Procedure Location: Day Surgery Unit Reason Performed: Postoperative Analgesia Requesting Provider: Elie Ardon Timeout Performed Timeout Performed: Yes Monitoring Used ECG, Blood Pressure, SpO2 and See EMR for corresponding vital signs Sterility Sterility: Hand Hygiene, Surgical Cap, Surgical Mask, Sterile Gloves and Chlorhexidine Sedation Given During Procedure Sedation Given (Indicate Dose Given): Versed IV Dose:: 1mg Patient Mental Status Patient Mental Status: Awake Nerve Block 1st Nerve Block: Laterality: Right Block Type: Interscalene Ultrasound Image Saved?: Yes Needle / Catheter Used: 80mm SonoPlex II Local Anesthetic Bolus (Indicate Dose Given): Lidocaine used for local infiltration of skin, Injected in 3-5ml increments after negative blood aspiration, Bupivacaine 0.5% Dose:: 10mL and Exparel Dose:: 10mL Additives (Indicate Dose Given): None Ultrasound: Sterile probe cover and gel used Nerve Stimulator: Supplement to Ultrasound use and No twitch or parasthesia noted < 0.5 mA Paresthesia: Right Paresthesia Duration: Transient Procedure Tolerated: No Complications and Patient tolerated well Procedure Outcome: Successful Performed By: Annamaria Diaz
--- NOTE | 2025-04-29 11:00 | DI.RAD_ITS ---
Exam(s) XR SHOULDER RT COMPLETE 2+V EXAM: XR SHOULDER RT COMPLETE 2+V CLINICAL HISTORY: Shoulder Arthritis. TECHNIQUE: 2D digital imaging was performed. COMPARISON: CR XR SHOULDER RT COMPLETE 2+V from 03/02/2025 FINDINGS: Two views The appearance of the right shoulder reverse prosthesis is stable. No fracture or loosening evident. However, there is some air-gas evident within the soft tissues over the prosthesis region and more medially in the see lateral subclavian region. The soft tissue findings were not evident on 03/02/2025. Correlation with clinical findings such as infectious in recommended. IMPRESSION: There is gas in the soft tissues around the prosthesis and ipsilateral subclavian. Correlation with any clinical signs of infection recommended. Bones appear unremarkable. DATA REPOSITORY: RADIATION DOSE DELIVERED:
[2025-04-29] MEDS: ceFAZolin 1 GM/50 ML BAG IVPB ×2 (11:27→20:24)
--- NOTE | 2025-04-29 13:49 | W.ANESPOSTOP ---
Postoperative Evaluation Date, Time and Location Date Performed: 04/29/25 Time Performed: 12:15 Patient Location: PACU Vital Signs Most Recent Imported Vital Signs: Most Recent Vital Signs Temp Pulse Resp BP Pulse Ox 36.2 C L 54 L 16 136/77 99 04/29/25 13:40 04/29/25 13:40 04/29/25 13:40 04/29/25 13:40 04/29/25 13:40 Pain Score Most Recent Pain Score: Most Recent Pain Score Pain Level 2 04/29/25 12:15 Assessment Mental Status: Awake (Alert & Oriented to Patient Baseline) Airway and Respiratory Function: Patent airway with normal (patient baseline) respiratory exam Cardiovascular Function: Hemodynamically Stable Hydration Status: Adequately Hydrated Nausea & Vomiting: No Nausea or Vomiting Pain: Pain is tolerable per patient Peripheral Nerve Block: Regional nerve block not resolved at time of post operative discharge
--- NOTE | 2025-04-29 16:03 | W.PC.ACHO ---
Registration Status: ADM IN Primary Language: Preferred Language: Belarusian (Last Reviewed 04/29/25 @ 06:04 by Baylee Salinas RN) Hx of shoulder replacement Status post left foot surgery Previous back surgery Status post arthroscopy of right knee (02/14/17) Most Recent Vital Signs Temperature 36.7 C 04/29/25 15:46 Temperature Source Temporal Artery Scan 04/29/25 15:46 Pulse 63 04/29/25 15:46 Pulse Rhythm Regular 04/29/25 12:38 Pulse 58 L 04/29/25 12:11 Respiratory Rate 18 04/29/25 15:46 Respiratory Effort Normal, Non-Labored 04/29/25 12:38 Respiratory Depth Normal 04/29/25 12:38 Respiratory Pattern Normal 04/29/25 12:38 Blood Pressure 127/68 04/29/25 15:46 Blood Pressure Mean 87 04/29/25 15:46 Blood Pressure Position Supine 04/29/25 07:30 Pulse Oximetry 100 04/29/25 15:46 Respiratory End-tidal CO2 34 04/29/25 12:06 Oxygen Delivery Method Room Air 04/29/25 15:46 Oxygen Flow Rate 0 04/29/25 15:46 Pain Level 2 04/29/25 12:15 Comment 14:40 Post Op 04/29/25 14:43 Allergies latex Allergy (Intermediate, Verified 04/29/25 06:06) Skin Rash isosorbide (Isosorbide) Adverse Reaction (Intermediate, Verified 04/29/25 06:06) Headache Active Medications Generic Name Dose Route Start Last Admin Trade Name Freq PRN Reason Stop Dose Admin Ringer's Solution 1,000 mls @ 30 mls/hr 04/29/25 06:00 04/29/25 12:16 IV 04/29/25 23:59 30 mls/hr INFUSION MASON Infusion Cefazolin Sodium/Dextrose 2 gm in 50 mls @ 100 mls/hr 04/29/25 06:00 04/29/25 08:15 Ancef Duplex IVPB 04/29/25 23:59 Infused PREOP [facility]ON Infusion Tranexamic Acid/Sodium Chloride 1,000 mg in 100 mls @ 600 mls/hr 04/29/25 06:00 04/29/25 08:17 IVPB 04/29/25 23:59 Infused PREOP MASON Infusion Cefazolin Sodium/Dextrose 1 gm in 50 mls @ 100 mls/hr 04/29/25 12:00 04/29/25 13:46 Ancef Duplex IVPB 05/02/25 04:29 Not Given Q8H MASON IV IV Catheter Type [Left Wrist] Saline Lock IV Catheter Gauge [Left Wrist] 20 Diet Orders Category Date Time Status Regular/Normal [DIET] Nutrition 04/29/25 Lunch Active 04/29/25 08:50 Surgical Culture - Pending Shoulder - Right Gram Stain - Final 04/29/25 08:50 Surgical Culture - Pending Shoulder - Right Gram Stain - Final 04/29/25 08:50 Surgical Culture - Pending Shoulder - Right Gram Stain - Final 04/29/25 08:50 Surgical Culture - Pending Shoulder - Right Gram Stain - Final 04/29/25 08:50 Surgical Culture - Pending Shoulder - Right Gram Stain - Final 04/29/25 08:50 Anaerobic Culture - Pending Shoulder - Right 04/29/25 08:50 Anaerobic Culture - Pending Shoulder - Right 04/29/25 08:50 Anaerobic Culture - Pending Shoulder - Right 04/29/25 08:50 Anaerobic Culture - Pending Shoulder - Right 04/29/25 08:50 Anaerobic Culture - Pending Shoulder - Right Intake and Output - 24 Hour Total 03/23/25 13:10 thru 04/29/25 15:16 Intake Total 1266.5 Output Total 250 Balance 1016.5 Weight 79.605 kg Intake: IV 1266.5 Output: Estimated Blood Loss 250 Other: Urine Appearance Clear Comment 234 168 134 Emesis Description None Falls Risk Assessment History of Falls No History 04/29/25 12:38 Contributing Factors Medications 04/29/25 12:38 Ambulatory Aids Independent 04/29/25 12:38 Tubes/Lines W/no contributing factors 04/29/25 12:38 Gait Evaluation No gait disturbance 04/29/25 12:38 Cognition No cognitive impairment 04/29/25 12:38 Fall Total Score 13 04/29/25 12:38 Level of Risk Standard/Low Risk 04/29/25 12:38 Attestation Statement: By documenting the first initial, last name, and credentials of the reporting nurse below, both parties acknowledge that all relevant information regarding the patient handoff has been communicated, and that all questions have been addressed to ensure continuity and safety of care. Additional Patient Information/Comments: pt transported on [id number] stretcher brought to pacu. right arm supported with pillow. ice applied. Report Received From: Joan, ASSOCIATE PROFESS[employer]
[2025-04-29] MEDS: Timolol 0.5% 5 ML BTL OP (20:24)
[2025-04-29] MEDS: Normal Saline Flush 10 ML SYR IVP (20:32)
[2025-04-30 03:45] VITALS: BP 121/67; PULSE 61; RESP 16; TEMP 36.2; O2SAT 94
[2025-04-30] MEDS: ceFAZolin 1 GM/50 ML BAG IVPB ×2 (04:14→11:57)
[2025-04-30 07:38] VITALS: BP 115/69; PULSE 58; RESP 16; TEMP 36.6; O2SAT 97
[2025-04-30 09:33] VITALS: BP 115/68; PULSE 63
--- NOTE | 2025-04-30 09:37 | PDOC.CMIN ---
Date of service: 04/30/25 Time of Service: 09:37 Care Management Initial Assmt Initial Assessment Reason for Hospitalization: reverse total shoulder Functional Status/Living Situation Town of Residence: [place] Instrumental Activities of Daily Living (ADLs): Independent Medications Medication Management: No Issues/Barriers identified Advance Directives Advance Directives: Do you have an Advance Directive: N 10/08/12, 00:34 AD On File at [facility]: N 07/21/12, 14:26 Date Asked 04/29/25 Today, 09:05 AD Date Reviewed COLST On File at [facility] COLST Date Scanned Code Status Resuscitation Status Full Code Portal Pt does not currently have a portal and education provided: Yes Insurance Coverage/Financial Issues Insurance: Medicare / Care Team Visit Care Team Role Provider Type Claude Juárez Primary Care Provider NON-[facility] STAFF PHYSICIAN Elie Ardon MD Admit Provider [facility] STAFF PHYSICIAN Attending Provider Discharge Potential Discharge Needs: PCP F/U Appt and Surgical F/U Appt Anticipated Barriers to Discharge: None Identified Patient/Family Education Needs: Review discharge instructions, discuss Ask Me Three Transportation: Private vehicle Plan: Anticipate Kavitha will be discharged home with no new services. She will follow up with her orthopedic surgeon and plan of care and transport with family. CM will follow and continue to assess for discharge planning concerns. Social Determinants of Health Screening Will the Patient Participate in the Screening?: Unable to obtain PFSH All Active Problems Stiffness of right shoulder joint (Acute) HTN (hypertension) (Chronic) Closed fracture of right proximal humerus (Acute 03/08/23) S/p Right fracture reverse total shoulder arthroplasty (tuberosity repair) with biceps tenodesis on 03/15/23 Degenerative joint disease of right knee (Acute) Internal derangement of right knee (Acute) Surgical History Hx of shoulder replacement Status post left foot surgery Hammer toe, per pt Previous back surgery Status post arthroscopy of right knee (02/14/17) Partial medial meniscectomy Social History Smoking/Tobacco Use Status: Never Smoking risk assessment performed?: Yes Alcohol Intake: never Drug use: Never Substance use type: does not use Housing: house Additional Social history: [employer]
[2025-04-30] MEDS: hydroCHLOROthiazide 12.5 MG TAB PO (09:39)
[2025-04-30] MEDS: Timolol 0.5% 5 ML BTL OP (09:40)
[2025-04-30] MEDS: amLODIPine 2.5 MG TAB PO (09:40)
[2025-04-30] MEDS: Normal Saline Flush 10 ML SYR IVP (09:42)
--- NOTE | 2025-04-30 10:33 | W.PM.DS.N ---
Date of service: 04/30/25 Time of Service: 10:33 DS: Diagnosis Discharge Diagnosis (1) Closed fracture of right proximal humerus: Status: Acute (2) Stiffness of right shoulder joint: Status: Acute Discharge Plan Disposition Patient Disposition: Home Anticipated Discharge Date/Time: 04/30/25 15:30 Condition: Stable Discharge Details Reason For Visit: Painful Right Shoulder Replacement Admit Date/Time: 04/29/25 10:37 Admit Provider: Elie Ardon Attending Provider: Elie Ardon Primary Care Provider: Claude Juárez Hospital Course Hospital Course: Shoulder surgery 04/29/2025 with inpatient admission for IV antibiotics while following preliminary cultures cultures. Patient did very well and was discharged postop day #1 on oral antibiotic coverage for possible indolent cutibacterium acnes infection. Home Meds and New Rx's Prescriptions: New naproxen 250 mg tablet 250 mg PO BID PRN (Reason: Moderate pain) Qty: 30 0RF tramadol 50 mg tablet 50 mg PO TID PRNQty: 18 0RF amoxicillin 500 mg capsule 500 mg PO TID 14 Days Qty: 42 0RF Bio-K plus 50 billion cell capsule,delayed release(DR/EC) 1 cap PO DAILY 14 Days Qty: 14 0RF Continued amlodipine 2.5 mg tablet 2.5 mg PO DAILY naproxen sodium 220 mg capsule 220 mg PO BID PRN multivitamin 1 EACH tablet 1 tab PO DAILY sumatriptan succinate 100 MG tablet 100 mg PO DAILY PRN fluocinolone 0.01 % solution 1 applic TOPICAL DIRECTED Patient Comments: APPLY A SMALL AMOUNT TO THE SKIN TWO TIMES A DAY TO SCALP RASH hydrochlorothiazide 12.5 mg tablet 12.5 mg PO DAILY Patient Comments: TAKE ONE TABLET BY MOUTH EVERY DAY olmesartan 40 mg tablet 40 mg PO DAILY Patient Comments: TAKE ONE TABLET BY MOUTH EVERY DAY timolol maleate 0.5 % drops 1 drp ophthalmic (eye) BID Patient Comments: INSTILL 1 DROP INTO BOTH EYES TWICE DAILY Discharge Instructions Additional Instructions: Surgery: Right revision reverse total shoulder arthroplasty (entire humeral side & glenosphere), removal of displaced tuberosity/heterotopic bone, and conjoint tendon release 04/29/2025 Activity: Do not lift anything heavier than a coffee. You should keep your arm at your side in a relatively neutral position at all times except for gentle range of motion exercises, physical therapy, and essential activities. You should use the sling whenever you are out of the house. At home it is best to remove the sling and rest the arm on a pillow at your side or support the operative side with your other hand. A physical therapy prescription will be sent electronically to start in about 3 weeks. CONSERVATIVE reverse TSA Protocol. Prescriptions: Amoxicillin 500 mg take 1 tab 3 times each day to prevent infection Use daily probiotic and/or yogurt while on antibiotics to prevent GI upset Naproxen 250 mg take 1 every 12 hours with a meal as needed for moderate pain Tramadol 50 mg take 1 every 8 hours as needed for severe pain You may use [id number] Tylenol (acetaminophen) as needed for mild pain. These pain medications may be taken all at once or in different combinations as needed. Also, recommend Colace (docusate) as a stool softener as surgery and pain medicine cause constipation. You may try [id number] diphenhydramine (Benadryl) 25-50 mg nightly as a sleep aid Dressings: Leave dressing in place until follow-up. Keep clean and dry at all times. No showers please. Follow-up: 10-[address] Ardon You may take off the leg compression stockings this evening at home. You may also leave them on a few days longer if you have a history of leg swelling or edema. Please call the office during business hours with any questions or concerns. Let us know right away if you develop any redness, drainage, fevers, chest pain, or trouble breathing. Do not drink alcohol or drive for at least 24 hours after anesthesia. Stand Alone Forms: Anesthesia Discharge Inst., Anes.Nerve Block Instructions, Brenda Dahl (DSU), Portal Information, Nursing Discharge Form Referrals: Elie Ardon MD [ [facility] STAFF PHYSICIAN, Orthopaedic Surgical] - 05/11/25 1:00 pm Activity:: see above instructions Equipment/Supplies:: Sling, CryoCuff Diet:: As Tolerated Discharge Orders Discharge Orders: Discharge Order (Routine); Ordered 04/30/25 Ordered By: Elie Ardon DS: Summary Time Spent with Patient providing and/or coordinating discharge services: Greater than 30 minutes Status at Discharge Functional status at discharge: independent ambulation Overall status at discharge: patient is progressing back to baseline Mental Status: mental status grossly normal Speech and Movement: speech and movement normal Mood: congruent mood Affect: normal affect Exam Narrative Exam Narrative: Patient awake, alert, resting comfortably in chair. Intact dressing on the right shoulder. Demonstrates active wrist and finger motion. Weak elbow flexion and extension. Significantly decreased sensation to light touch in the axillary nerve distribution. Improving finger sensation. Psych Mental Status: mental status grossly normal Speech and Movement: speech and movement normal Mood: congruent mood Affect: normal affect DS: Data Vitals/I&O Vitals and I&O: Vital Signs Temperature 97.9 F 04/30/25 07:38 Temperature Source Temporal Artery Scan 04/30/25 07:38 Pulse 63 04/30/25 09:33 Pulse Rhythm Regular 04/29/25 12:38 Pulse 58 L 04/29/25 12:11 Respiratory Rate 16 04/30/25 07:38 Respiratory Effort Normal, Non-Labored 04/29/25 12:38 Respiratory Depth Normal 04/29/25 12:38 Respiratory Pattern Normal 04/29/25 12:38 Blood Pressure 115/68 04/30/25 09:33 Blood Pressure Mean 83 04/30/25 09:33 Blood Pressure Position Supine 04/29/25 07:30 Pulse Oximetry 97 04/30/25 07:38 Respiratory End-tidal CO2 34 04/29/25 12:06 Oxygen Delivery Method Room Air 04/30/25 09:33 Oxygen Flow Rate 0 04/30/25 09:33 Pain Level 0 04/30/25 09:33 Comment 14:40 Post Op 04/29/25 14:43 Intake & Output 04/29/25 04/29/25 04/30/25 11:59 23:59 11:59 Intake Total 1016.5 / 1516.5 500 / 1516.5 480 / 480 Output Total 250 / 250 Balance 766.5 / 1266.5 500 / 1266.5 480 / 480 Weight 161 lb 2.526 oz 175 lb 8 oz Intake: IV 1016.5 / 1316.5 300 / 1316.5 Oral 200 / 200 480 / 480 Output: Estimated Blood Loss 250 / 250 Other: Urine Color Pale Yellow Urine Appearance Clear Urine Odor Normal Comment pt voided an unmeasureable amount in the toliet Emesis Description None None Data Completed and Pending Pending Labs at Discharge: Preliminary micro results at discharge 04/29/25 08:50 Shoulder - Right Surgical Culture - Preliminary 04/29/25 08:50 Shoulder - Right Surgical Culture - Preliminary 04/29/25 08:50 Shoulder - Right Surgical Culture - Pending 04/29/25 08:50 Shoulder - Right Surgical Culture - Pending 04/29/25 08:50 Shoulder - Right Surgical Culture - Pending 04/29/25 08:50 Shoulder - Right Anaerobic Culture - Pending 04/29/25 08:50 Shoulder - Right Anaerobic Culture - Pending 04/29/25 08:50 Shoulder - Right Anaerobic Culture - Pending 04/29/25 08:50 Shoulder - Right Anaerobic Culture - Pending 04/29/25 08:50 Shoulder - Right Anaerobic Culture - Pending PFSH All Active Problems Stiffness of right shoulder joint (Acute) HTN (hypertension) (Chronic) Closed fracture of right proximal humerus (Acute 03/08/23) S/p Right fracture reverse total shoulder arthroplasty (tuberosity repair) with biceps tenodesis on 03/15/23 Degenerative joint disease of right knee (Acute) Internal derangement of right knee (Acute) Surgical History Hx of shoulder replacement Status post left foot surgery Hammer toe, per pt Previous back surgery Status post arthroscopy of right knee (02/14/17) Partial medial meniscectomy Social History Smoking/Tobacco Use Status: Never Smoking risk assessment performed?: Yes Alcohol Intake: never Drug use: Never Substance use type: does not use Housing: house Additional Social history: [employer] Time Spent with Patient Time Spent with Patient: <45 minutes Time was spent: preparing to see the patient(eg.review tests), obtaining and/or reviewing separately otained hiistory, ordering medications,tests, procedures, referring, communicating with other health healthcare translator, indepentently interpreting results, counseling the patient and care coordination
[2025-04-30] MEDS: Aspirin E.C. 81 MG TABEC PO (10:35)
[2025-04-30 11:15] VITALS: BP 121/74; PULSE 59; RESP 18; TEMP 37; O2SAT 97
[2025-04-30] MEDS: Lactobacillus Acidophilus CAP 1 CAP PO (11:57)
--- NOTE | 2025-04-30 13:39 | PDOC.CMPRO ---
Date of service: 04/30/25 Time of Service: 13:39 Care Management Progress Note Progress Note Text Progress Note Text: Kavitha was admitted on 04/29/25 for shoulder arthroplasty. The procedure went well and Kavitha was able to be discharged home this morning. She will follow up with her orthopedic surgeon and plan of care and transport with family. Social Determinants of Health Screening Will the Patient Participate in the Screening?: Unable to obtain
== END 2025-04-30 13:27 | disposition home or self-care (01) | DRG 483 ==
LOC: MS 04-30 09:05
PROVIDERS: Admitting Provider Student in an Organized Health Care Education/Training Program; PCP Student in an Organized Health Care Education/Training Program; Visit Provider Student in an Organized Health Care Education/Training Program
PROC: 0RPJ0JZ Removal of Synthetic Substitute from Right Shoulder Joint, Open Approach (ICD-10-PCS; CPT 23472; principal; 2025-04-29 07:30)
DX: M75.01 Adhesive capsulitis of right shoulder; T84.84XA Pain due to internal orthopedic prosthetic devices, implants and grafts, initial encounter; G89.18 Other acute postprocedural pain; M75.81 Other shoulder lesions, right shoulder; M89.9 Disorder of bone, unspecified; I10 Essential (primary) hypertension; Z79.899 Other long term (current) drug therapy
CPT/HCPCS: 23474; 64415; 73030; 87070; 87075; 87205; J0131; J0665; J0666; J0690; J1100; J1885; J2250; J2405; J2704; J3373

== ENCOUNTER 2025-05-11 15:50 | Outpatient (CLI) | payer MEDICARE, BC, SELFPAY ==
--- NOTE | 2025-05-11 12:58 | DI.RAD_ITS ---
Exam(s) XR SHOULDER RT COMPLETE 2+V EXAM: XR SHOULDER RT COMPLETE 2+V INDICATION: F/U RIGHT SHOULDER REVISION RTSA. COMPARISON: CR XR SHOULDER RT COMPLETE 2+V from 04/29/2025 TECHNIQUE: 2D digital imaging was performed. Three views. FINDINGS: Stable alignment reverse shoulder prosthesis. No abnormal surrounding bony lucencies. DATA REPOSITORY: RADIATION DOSE DELIVERED:
== END 2025-05-11 15:51 | disposition home or self-care (01) ==
LOC: DIORS 15:50
PROVIDERS: PCP Student in an Organized Health Care Education/Training Program; Referring Provider Student in an Organized Health Care Education/Training Program; Visit Provider Student in an Organized Health Care Education/Training Program
DX: Z47.1 Aftercare following joint replacement surgery (principal); Z96.611 Presence of right artificial shoulder joint
CPT/HCPCS: 99024; 73030